=== PATIENT | male | born 1975 | race Caucasian/White ===

== ENCOUNTER 2016-11-13 21:23 | Inpatient (IN) ==
[2016-11-13] MEDS ORDERED: METOPROLOL TARTRATE 5 MG/5 ML VIAL IV ONE (21:35)
[2016-11-13] MEDS ORDERED: SODIUM CHLORIDE 0.9% 500 ML IV STA (21:52)
[2016-11-13] MEDS ORDERED: cefTRIAXone 1,000 MG in SODIUM CHLORIDE 0.9% 100 ML IV STA (21:52)
[2016-11-13] MEDS ORDERED: ACETAMINOPHEN 500 MG TABLET PO STA (21:54)
--- NOTE | 2016-11-13 21:55 | Emergency Department Note ---
Neil Montemayor Brittany, am scribing for, and in the presence of, Cheko Deal MD 21:50. Toyin Montemayor Charles R, MD, personally performed the services described in this documentation, ascribed by Rita Trejo in my presence, and it is both accurate and complete . Arrival - Arrival Chief Complaint: Weakness ED Nursing Triage Note: PT ARRIVES VIA EMS WITH COMPLAINTS OF FEELING WEAK. REPORT GIVEN THAT PT HAD SEIZURE LIKE ACTIVITY. NO HISTORY OF SEIZURES. PT RECENTLY HAD MORPHINE PAIN PUMP INCREASED TODAY. DENIES ANY PAIN AT TIME OF TRIAGE. PT IS NOTED TO BE DIAPHORETIC AT TIME OF TRIAGE. EMS REPORTS THAT PT HAD A INITIAL HEART RATE OF 175 ON SCENE AND WAS GIVEN ADENOSINE. Mode of Arrival: Stretcher Limitations: No Limitations Source: Patient, Family Time Seen by Provider: 11/13/16 21:33 - History of Present Illness HPI Narrative: This is a 41 y/o white male, who presents to the ED by EMS with c/o fever which started earlier today. His family states pt is confused. His family states pt has recently had a morphine pain pump increased. Pt denies any sore throat. Per EMS, pt was given adenosine secondary to heart rate being 175. Pt has no other complaints/pain in the ED at this time. Pt has a PMHx of HTN, depression, anxiety, back/neck problems, gout, and pain problems. Pt denies a surgical Hx. Pt denies a family medical Hx. Pt denies a social Hx. Onset (ago): hour(s) (Started earlier today) Consistency: constant Severity: moderate Allergies/Adverse Reactions: Allergies Allergy/AdvReac Type Severity Reaction Status Date / Time No Known Allergies Allergy Verified 10/12/15 09:15 Home Medications: Home Medications Medication Instructions Recorded Confirmed Type Colchicine [Colcrys] 0.6 mg PO BID 09/14/16 11/13/16 History Lisinopril 10 mg PO BID 09/14/16 11/13/16 History Methocarbamol Tab [Robaxin Tab] 750 mg PO TID 09/14/16 11/13/16 History Morphine ER Tab [Ms Contin] 100 mg PO TID 09/14/16 11/13/16 History Morphine ER Tab [Ms Contin] 100 mg PO TID 09/14/16 11/13/16 History Morphine Ir Tab [Morphine IR Tab] 30 mg PO Q12HR 09/14/16 11/13/16 History Venlafaxine HCl [Effexor XR] 150 mg PO DAILY 09/14/16 11/13/16 History traZODone [Desyrel] 150 mg PO BEDTIME 09/14/16 11/13/16 History Review of System - Review of System 12 point system: reviewed and no additional remarkable complaints except as stated - Review of System Constitutional: Present: fever Head/Ears/Nose/Throat: Absent: sore throat Musculoskeletal: Present: neck pain Neurological: Present: headache (On and off), confusion Medical,Surgical,& Family Hx - Medical History Cardio: History of: Hypertension Psychological: History of: Anxiety Disorders, Depression Rheumatology: History of;: Gout Musculoskeletal: History of: Back/Neck Problems (chronic back pain), Musculoskeletal Problems (s/p drug infusion system w/cath placement performed - 09/14/16) - Social History Smoking Status: Unknown if ever smoked Frequency of Alcohol Use: None Type of Drug Use: None Exam Vital Signs: Vital Signs Temperature 98.8 F 11/13/16 23:28 Pulse Rate 114 H 11/13/16 23:28 Respiratory Rate 15 11/13/16 23:28 Blood Pressure 158/119 11/13/16 23:28 O2 Sat by Pulse Oximetry 97 11/13/16 23:28 - General General appearance: alert, in no apparent distress - Head Head exam: Present: atraumatic, normocephalic, normal inspection - Eye Eye exam: Present: other (Pupils are pin point) - ENT ENT exam: Present: normal exam, normal oropharynx, mucous membranes moist - Neck Neck exam: Present: normal inspection, full ROM, trachea midline. Absent: tenderness, meningismus, lymphadenopathy, thyromegaly - Chest Chest inspection: Present: normal inspection, symmetric chest wall rise. Absent : tenderness, rash, abscess - Respiratory Respiratory exam: Present: rhonchi (Bilateral Rhonchi) - Cardiovascular Cardiovascular exam: Present: regular rate, irregular rhythm, normal heart sounds. Absent: murmur, rubs, gallop, clicks, JVD - Abdominal Exam Abdominal exam: Present: soft, hypoactive bowel sounds. Absent: distention, tenderness, guarding, rebound, rigidity - Back Exam Back exam: Present: other (Pain stimulator in the back, not infected). Absent: tenderness, muscle spasm, rashes - Neurological Exam Neurological exam: Present: alert, CN II-XII intact. Absent: motor sensory deficit - Psychiatric Psychiatric exam: Present: normal affect, normal mood. Absent: agitated, anxious - Skin Skin exam: Present: other (Flushed skin ). Absent: diaphoresis Course - Reevaluation(s) Reevaluation #1: Patient heart rate is down to 106 in stable Time: 23:47 - Consultations Consultation #1: Dr. Almonte will admit patient Time: 23:46 Results - Labs CBC & BMP: 11/13/16 21:45 11/13/16 21:45 Lab Results: I have reviewed the patients labs - Diagnostic Findings Procedure: Chest x-ray: report reviewed by me (No acute cardiopulmonary process. ), CT: report reviewed by me (Head CT: NO acute intracranial abnormality. ) Critical Care Time Critical Care Time: Yes Total Critical Care Time: 60 Disposition Clinical Impression: Chronic pain, Sepsis, Confusion, Delirium, chronic opiate dependency, Fever, SVT (supraventricular tachycardia) Case discussed with: patient, patient's family Disposition: Still a Patient Condition: Stable Time of Disposition: 23:47
[2016-11-13 22:06] LABS: Basophils % 0.2 % (0.0-0.8); Hematocrit 48.5 VOL% (42.0-52.0); Hemoglobin 16.2 GM/DL (14.0-18.0); Immature Granulocytes % 0.5 %; Immature Granulocytes Absolute 0.08 #; Lymphocytes # 0.5 10*3/uL (1.4-4.0); Lymphocytes % 3.3 % (21.2-54.2); Mean Corpuscular HGB Conc 33.4 GM/DL (32-36); Mean Corpuscular Hemoglobin 26 PG (27-34); Mean Corpuscular Volume 77.8 FL (87-102); Mean Platelet Volume 8.7 FL (9.6-12.0); Monocytes % 6.5 % (1.7-12.7); Neutrophils # 13.1 10*3/uL (1.4-7.4); Neutrophils % 89.5 % (38.7-73.9); Platelet Count 259 T/CUMM (130-400); Red Blood Count 6.23 MC/CUMM (3.8-5.5); Red Cell Distribution Width 13.3 % (9.3-17.3); White Blood Count 14.7 T/CUMM (4-12)
[2016-11-13 22:15] LABS: INR 1.7; PT Patient Result 18.4 SECS
[2016-11-13] MEDS ORDERED: SODIUM CHLORIDE 0.9% 100 ML IV ONE (22:15)
[2016-11-13] MEDS ORDERED: cefTRIAXone 1,000 MG VIAL ONE (22:15)
[2016-11-13] MEDS ORDERED: ACETAMINOPHEN 500 MG TABLET ONE (22:15)
[2016-11-13] MEDS ORDERED: METOPROLOL TARTRATE 5 MG/5 ML VIAL IV STA (22:25)
[2016-11-13 22:31] LABS: Albumin 3.3 G/DL (3.4-5.0); Bilirubin,Total 0.4 MG/DL (0.2-1.0); Calcium 9.5 MG/DL (8.5-10.1); Potassium 3.6 MMOL/L (3.5-5.1); Total Protein 7.4 G/DL (6.4-8.3)
--- NOTE | 2016-11-13 22:37 | CT Report ---
CT head/brain wo con INDICATION: Altered mental status/confusion The total DLP is 1053 mGy*cm. COMPARISON: None available Technique: Serial axial tomographic images of the brain were obtained without the use of intravenous contrast. Findings: The cortical sulcal pattern is generally symmetric and within normal limits in appearance bilaterally. There is no evidence of vascular territory infarct or acute intracranial hemorrhage. The albert-white matter differentiation is generally maintained. There is no hydrocephalus. The basilar cisterns are patent. Small mucous retention cysts noted within the right maxillary sinus and left sphenoid sinus. Otherwise, the visualized paranasal sinuses, mastoid air cells and middle ear cavities are predominantly clear. The included orbits and their contents appear within normal limits. The visualized osseous structures and overlying soft tissues of the skull and face demonstrate no acute abnormality. IMPRESSION: No acute intracranial abnormality. PROCEDURE INTERPRETED AT [facility] DEPARTMENT OF RADIOLOGY Final Report Signed by: Stew Gould
--- NOTE | 2016-11-13 22:38 | XRay Report ---
Exam: XR chest 1V portable Indication: Fever Shortness of breath Comparison study: None Findings: The heart, mediastinum, and bony structures are within normal limits. There is no focal consolidation, pneumothorax or pleural effusion identified. Impression: No acute cardiopulmonary process. PROCEDURE INTERPRETED AT [facility] DEPARTMENT OF RADIOLOGY Final Report Signed by: Stew Gould
[2016-11-13 23:38] LABS: Apearance,Urine Slightly Hazy (Clear); Bilirubin,Urine Negative (Negative); Blood, Urine Large mg/dL (Negative); Glucose,Urine (UA) Negative (Negative); Hyaline Casts,Urine 3 /LPF (0-3); Ketones,Urine 20 mg/dL (Negative); Mucus,Urine Occasional /LPF (Occasional); Nitrite,Urine Negative (Negative); Protein,Urine 100 MG/DL; RBC,Urine 66 /HPF (0-4); Urine Color Yellow (Yellow); Urine Specific Gravity 1.018 (1.001-1.035); Urine Urobilinogen < 2.0 EU/DL (0.2-1.0); WBC,Urine 2 /HPF (0-6)
[2016-11-13 23:42] LABS: Barbiturates Screen,Urine Negative (Negative); Benzodiazepines Screen,Urine Negative (Negative); Cannabinoid Screen,Urine Negative (Negative); Opiate Screen,Urine Positive (Negative); Phencyclidine Screen,Urine Negative (Negative)
--- NOTE | 2016-11-13 23:47 | Hospitalist History & Physical ---
Assessment and Plan (1) Seizure Status: Acute Current Visit: Yes (2) Acute encephalopathy Status: Acute Current Visit: Yes (3) Fever Status: Acute Current Visit: Yes (4) SVT (supraventricular tachycardia) Status: Acute Current Visit: Yes (5) Opioid dependence Status: Acute Assessment and plan: Plan: Patient went into SVT during evaluation in the ER which converted back to sinus rhythm after 3 doses of adenosine. He is currently sinus tachycardia, no chest pain no shortness of breath. We'll place him on heart monitor, schedule metoprolol 12.5 mg by mouth every 6.. We'll consult Dr. Cummings to evaluate the pain pump, as his family reports that he started having these symptoms on and off (headache, confusion, subjective fever and) since being placed. Also have neurology evaluate new-onset seizure. Infectious workup thus far is negative. He's been given a dose of empiric antibiotics in the ER. Current Visit: Yes History of Present Illness Chief complaint: headache, fever, confusion, SVT, seizure History of present illness: Mr. Staley is a 41 year old male with hypertension, chronic pain, followed by Dr. Osiel Cummings, who had a pain pump placed Suleman is here with a new onset seizure, confusion, and headache over the last 2 days or so. His reports about a week ago he was driving his kids to his mother's house and does not remember much of what happened and was "not acting like himself." Patient denies fever at that time or headache. This evening around 830 his witnessed seizure-like activity, which she describes as tonic-clonic like movements, no bowel or bladder incontinence. No tongue biting. He has never had a seizure before, not even as a child. He's also describes subjective fever and sweats over the last 2 days along with headache. He denies cough, chest pain, nausea vomiting diarrhea or dysuria. Infectious workup in the ER has been negative. He does have a markedly elevated CRP. Home Medications Medication Instructions Recorded Confirmed Type Colchicine [Colcrys] 0.6 mg PO BID 09/14/16 11/13/16 History Lisinopril 10 mg PO BID 09/14/16 11/13/16 History Methocarbamol Tab [Robaxin Tab] 750 mg PO TID 09/14/16 11/13/16 History Morphine ER Tab [Ms Contin] 100 mg PO TID 09/14/16 11/13/16 History Morphine ER Tab [Ms Contin] 100 mg PO TID 09/14/16 11/13/16 History Morphine Ir Tab [Morphine IR Tab] 30 mg PO Q12HR 09/14/16 11/13/16 History Venlafaxine HCl [Effexor XR] 150 mg PO DAILY 09/14/16 11/13/16 History traZODone [Desyrel] 150 mg PO BEDTIME 09/14/16 11/13/16 History Allergies Allergy/AdvReac Type Severity Reaction Status Date / Time No Known Allergies Allergy Verified 10/12/15 09:15 Medical,Surgical,& Family Hx - Medical History Cardio: History of: Hypertension Psychological: History of: Anxiety Disorders, Depression Rheumatology: History of;: Gout Musculoskeletal: History of: Back/Neck Problems (chronic back pain), Musculoskeletal Problems (s/p drug infusion system w/cath placement performed - 09/14/16) - Surgical History Additional Surgical History: Morphine pump implant August 2016 - Family History Family History: noncontributory - Social History Smoking Status: Unknown if ever smoked Frequency of Alcohol Use: None Type of Drug Use: None Marital Status: Lives With:: Spouse Functional capacity: independent ambulation Review of systems: A 12 point review of systems is negative except as specified in the HPI Exam - Constitutional Vitals: Period Temp Pulse Resp BP Sys/Hahn Pulse Ox Last 24 Hr 98.8 F-99.0 F 110-149 15-20 139-158/96-119 97-98 Exam: EXAM: CONSTITUTIONAL: Obese, diaphoretic, non toxic, NAD HEENT: NC, AT, OP benign, LILY, EOMI, no nuchal rigidity CV: Tachycardic, regular, no m/g/r RESP: clear B/L, no w/r/r GI: abd soft, NT, ND, +bowel sounds INTEGUMENTARY: no lesions or rash EXTREMITIES: no c/c/e NEURO: no focal deficits PSYCH: Awake and alert, oriented 3 Results - Labs CBC & BMP: 11/13/16 21:45 11/13/16 21:45 Lab Results: I have reviewed the past 24 hour labs - EKG EKG shows: tachycardia, sinus rhythm - Diagnostic Findings Procedure: Chest x-ray: image reviewed by me, report reviewed by me, CT: image reviewed by me, report reviewed by me
[2016-11-14 00:59] LABS: Lymphocytes 1 % (20-55); Myelocytes 1 %; Segmented Neutrophils 95 % (50-85)
[2016-11-14 01:00] LABS: Platelet Estimate Normal; Total Cells Counted 100
[2016-11-14] MEDS ORDERED: ONDANSETRON 4 MG/2 ML VIAL IV PRN (01:07)
[2016-11-14] MEDS ORDERED: BISACODYL 5 MG TABLET PO PRN (01:07)
[2016-11-14] MEDS ORDERED: ACETAMINOPHEN 325 MG TABLET PO PRN (01:07)
[2016-11-14] MEDS ORDERED: SODIUM CHLORIDE 0.9% 1,000 ML IV SCH (01:30)
[2016-11-14] MEDS: METOPROLOL TARTRATE 25 MG TABLET PO SCH ×2 (01:52→18:52)
[2016-11-14 06:21] LABS: Basophils % 0.3 % (0.0-0.8); Eosinophils % 0.2 % (0.00-10.9); Hematocrit 46.3 VOL% (42.0-52.0); Hemoglobin 15.6 GM/DL (14.0-18.0); Immature Granulocytes % 0.4 %; Immature Granulocytes Absolute 0.04 #; Lymphocytes # 1.3 10*3/uL (1.4-4.0); Lymphocytes % 11.5 % (21.2-54.2); Mean Corpuscular HGB Conc 33.7 GM/DL (32-36); Mean Corpuscular Hemoglobin 26 PG (27-34); Mean Corpuscular Volume 77.3 FL (87-102); Mean Platelet Volume 8.6 FL (9.6-12.0); Monocytes # 0.9 10*3/uL (0.11-0.8); Monocytes % 8.6 % (1.7-12.7); Neutrophils # 8.6 10*3/uL (1.4-7.4); Platelet Count 255 T/CUMM (130-400); Red Blood Count 5.99 MC/CUMM (3.8-5.5); Red Cell Distribution Width 13.4 % (9.3-17.3); White Blood Count 10.9 T/CUMM (4-12)
[2016-11-14 07:05] LABS: Bilirubin,Total 0.7 MG/DL (0.2-1.0); Calcium 9.1 MG/DL (8.5-10.1); Osmolality,Calculated 273.7 MOS/KG (273-304); Potassium 3.6 MMOL/L (3.5-5.1); Thyroid Stimulating Hormone 0.066 uIU/ml (0.358-3.74); Total Protein 7.1 G/DL (6.4-8.3)
--- NOTE | 2016-11-14 07:06 | Pain Management Consult Note ---
Assessment and Plan (1) Chronic pain Status: Acute Assessment and plan: will reduce pain medications a little , not related to seizures though Current Visit: Yes (2) Seizure Status: Acute Assessment and plan: consult neurology Current Visit: Yes (3) SVT (supraventricular tachycardia) Status: Acute Assessment and plan: consult cardiology Current Visit: Yes History of Present Illness Chief complaint: seizure History of present illness: Mr. Staley is a 41 year old male new onset of seizures last night. no definite evidence of infection is noted. he hadd episode of SVT. i would like to consult neurology and infectious disese and get full work up done. please note that in order to get mri scan, pain pump will need to be emptied before procedure. Home Medications Medication Instructions Recorded Confirmed Type Colchicine [Colcrys] 0.6 mg PO BID 09/14/16 11/13/16 History Lisinopril 10 mg PO DAILY 09/14/16 11/14/16 History Methocarbamol Tab [Robaxin Tab] 750 mg PO TID 09/14/16 11/13/16 History Morphine ER Tab [Ms Contin] 100 mg PO BID 09/14/16 11/14/16 History Morphine Ir Tab [Morphine IR Tab] 30 mg PO BID 09/14/16 11/14/16 History Venlafaxine HCl [Effexor XR] 150 mg PO DAILY 09/14/16 11/13/16 History traZODone [Desyrel] 150 mg PO BEDTIME 09/14/16 11/14/16 History Carisoprodol 350 mg PO BEDTIME 11/14/16 11/14/16 History fentaNYL [Fentanyl 100 mcg/hr 1 patch TRANSDERM Q3DAY 11/14/16 11/14/16 History Patch] Allergies Allergy/AdvReac Type Severity Reaction Status Date / Time No Known Allergies Allergy Verified 10/12/15 09:15 Medical,Surgical,& Family Hx - Medical History Cardio: History of: Hypertension Psychological: History of: Anxiety Disorders, Depression Rheumatology: History of;: Gout Musculoskeletal: History of: Back/Neck Problems (chronic back pain), Musculoskeletal Problems (s/p drug infusion system w/cath placement performed - 09/14/16) - Social History Smoking Status: Unknown if ever smoked Frequency of Alcohol Use: None Type of Drug Use: None 12 point system: reviewed and no additional remarkable complaints except as stated Exam - Constitutional Vitals: Period Temp Pulse Resp BP Sys/Hahn Pulse Ox Last 24 Hr 98.5 F-98.6 F 98-112 16-16 122-149/85-100 97-98 General appearance: no acute distress - Head Head exam: Present: normal inspection - Eye Pupils: Present: LILY - ENT ENT exam: Present: normal exam, normal external ear exam Ear exam: Present: intact Mouth exam: Present: normal external inspection - Neck Neck exam: Present: normal inspection - Respiratory Respiratory exam: Present: clear to auscultation bilaterally - Cardiovascular Cardiovascular exam: Present: RRR - GI/Abdominal GI/Abdominal exam: Present: normal bowel sounds, other (incision is intact , no redness or discharge) - Extremities Exam Extremities exam: Present: normal inspection - Back Exam Back exam: Present: vertebral tenderness - Neurological Exam Neurological exam: Present: alert, oriented X3 - Skin Skin exam: Present: normal color Results - Labs CBC & BMP: 11/14/16 06:02 11/13/16 21:45 Lab Results: I have reviewed the past 24 hour labs
[2016-11-14] MEDS: MORPHINE IR 15 MG TABLET PO SCH ×2 (08:11→21:14)
[2016-11-14] MEDS ORDERED: LORazepam 2 MG/1 ML VIAL IV ONE ×3 (08:36→19:58)
--- NOTE | 2016-11-14 08:53 | Hospitalist Progress Note ---
Assessment and Plan - Time spent with patient Time spent with patient: Less than 30 minutes (due to assessment, plan and documentation) (1) Seizure Status: Acute Assessment and plan: actively seizing upon arrival- ativan 2 mg IV was given and seizure stopped he will be moved to [address] CCU for close observation Dr. Chavez has been consulted for new onset seizure Current Visit: Yes (2) Acute encephalopathy Status: Acute Current Visit: Yes (3) Chronic pain Status: Acute Current Visit: Yes (4) SVT (supraventricular tachycardia) Status: Resolved Assessment and plan: received adenosine en route via EMS yesterday prior to admission. His HR has been 115 and around that juan since admit Current Visit: Yes Hospitalist: Subjective Interval history: Mr. Staley was seen this morning after a rapid response was called. He was admitted yesterday with SVT that required adenosine. He also had a seizure as well. Today, he is seizing again, and has vomited. Ativan 2 mg IV was given. His seizure did stop, but we was very agitated, confused. Lungs are course and it is felt that he has aspirated. Dr. Abad Tsai has been consulted for pulmonary. He was given Rocephin in the ED for a possible infectious cause, but none had been identified. He will be moved to the ICU for close observation. Dr. Chavez for Neurology was consulted on admit, but I do not see a note from him at this time. We will continue to monitor and Dr. Shah has seen on the floor and will follow him to the ICU. Further plan and addendum to follow by Dr. Yoly Shah. Exam - Constitutional Vitals: Period Temp Pulse Resp BP Sys/Hahn Pulse Ox Last 24 Hr 98.5 F-98.6 F 98-112 16-16 122-149/85-100 97-98 General appearance: severe distress, over weight - Head Head exam: Present: normal inspection, normocephalic - Eye Eye exam: Present: EOMI. Absent: scleral icterus Pupils: Present: LILY, normal accommodation - ENT ENT exam: Present: normal exam, normal oropharynx - Neck Neck exam: Present: normal inspection. Absent: lymphadenopathy - Respiratory Respiratory exam: Present: accessory muscle use, other (course likely aspiration ) - Cardiovascular Cardiovascular exam: Present: tachycardia - Back Exam Back exam: Present: normal inspection. Absent: muscle spasm - Neurological Exam Neurological exam: Present: alert, altered (is not not oriented to his surroundings at this time.). Absent: oriented X3 - Psychiatric Psychiatric exam: Present: agitated, anxious - Skin Skin exam: Present: normal color, warm, dry, intact Results - Labs CBC & BMP: 11/14/16 06:02 11/14/16 06:02 Lab Results: I have reviewed the past 24 hour labs
[2016-11-14] MEDS ORDERED: COLCHICINE 0.6 MG TABLET PO SCH (09:00)
[2016-11-14] MEDS ORDERED: METHOCARBAMOL 750 MG TABLET PO SCH (09:00)
[2016-11-14] MEDS ORDERED: MORPHINE ER 100 MG TABLET PO SCH (09:00)
[2016-11-14] MEDS ORDERED: VENLAFAXINE XR 75 MG CAPSULE PO SCH (09:00)
[2016-11-14] MEDS ORDERED: METOPROLOL TARTRATE 5 MG/5 ML VIAL IV ONE (09:06)
--- NOTE | 2016-11-14 09:17 | EKG Report ---
Stationary ECG Study [facility] Test Date: 11/14/2016 9:16:44 AM Pat Name: XAVIER MORALES Department: Room: 127 Gender: M Nutritional Assistant: CAREN : 1975 Requested by: Yoly Shah Order Number: [id number] Reading MD: KRYSTAL WATSON Intervals [place] Rate: 148 P: 59 MO: 117 QRS: 94 QRSD: 105 T: -6 QT: 310 QTc: 395 Interpretive Statements SINUS TACHYCARDIA WITH SHORT MO INTERVAL WITH OCCASIONAL VENTRICULAR PREMATURE COMPLEX BORDERLINE RIGHT AXIS DEVIATION MODERATE ST DEPRESSION IVCD Electronically Signed On 11-16-16 19:45:29 ESTIMATOR PROJECT MANAGER by KRYSTAL WATSON [email or web address]
--- NOTE | 2016-11-14 09:41 | Pulmonology Consult Note ---
Assessment and Plan (1) SVT (supraventricular tachycardia) Status: Resolved Assessment and plan: The patient has been having a regular tachycardia with high blood pressure now. We'll start a Cardizem infusion. Current Visit: Yes (2) Seizure Status: Acute Assessment and plan: He has continued to have seizures and is being loaded with seizure medications. Current Visit: Yes (3) Fever Status: Acute Assessment and plan: He will likely need an LP and further workup. Current Visit: Yes (4) Opioid dependence Status: Acute Assessment and plan: He has a pain pump in his back and takes morphine regularly. Current Visit: Yes (5) Aspiration into airway Status: Acute Assessment and plan: He may have had some mild aspiration but at this point his breathing is relatively stable. His seizures will need to be controlled first. He eventually may need to be intubated if his neurological status doesn't improve. Current Visit: Yes History of Present Illness Chief complaint: possible aspiration History of present illness: Mr. Staley is a 41 year old white male that has a history of having hypertension and chronic back pain. He has had a pain pump placed in his back last August. Last night he apparently had a witnessed seizure and had a tachycardia after the seizure. He came to the emergency room and was admitted. He apparently has been having a little bit of fever and sweats for the last couple days with a headache. He has never had seizures before. This morning he had another seizure and likely aspirated some chewing tobacco. He was moved to the CCU and he has had another seizure while I was talking to him. He will need to be evaluated further. He is getting seizure medicines now. He has not had any definite breathing problems before his seizure he was not coughing or short of breath. Home Medications Medication Instructions Recorded Confirmed Type Colchicine [Colcrys] 0.6 mg PO BID 09/14/16 11/13/16 History Lisinopril 10 mg PO DAILY 09/14/16 11/14/16 History Methocarbamol Tab [Robaxin Tab] 750 mg PO TID 09/14/16 11/13/16 History Morphine ER Tab [Ms Contin] 100 mg PO BID 09/14/16 11/14/16 History Morphine Ir Tab [Morphine IR Tab] 30 mg PO BID 09/14/16 11/14/16 History Venlafaxine HCl [Effexor XR] 150 mg PO DAILY 09/14/16 11/13/16 History traZODone [Desyrel] 150 mg PO BEDTIME 09/14/16 11/14/16 History Carisoprodol 350 mg PO BEDTIME 11/14/16 11/14/16 History fentaNYL [Fentanyl 100 mcg/hr 1 patch TRANSDERM Q3DAY 11/14/16 11/14/16 History Patch] Allergies Allergy/AdvReac Type Severity Reaction Status Date / Time No Known Allergies Allergy Verified 10/12/15 09:15 ROS unobtainable: due to mental status (he was talking appropriately and then suddenly had a seizure. He was not having any shortness of breath or definite pain at this time.) Exam (Pulmon) H&P - Constitutional Vitals: Period Temp Pulse Resp BP Sys/Hahn Pulse Ox Last 24 Hr 98.5 F-99.1 F 98-112 16-16 122-170/85-100 93-100 General appearance: over weight, other (the patient had a seizure while I was evaluating him.) - Head Head exam: Present: normal inspection - Eye Eye exam: Absent: scleral icterus - ENT ENT exam: Present: normal exam - Neck Neck exam: Present: normal inspection. Absent: lymphadenopathy, meningismus, thyromegaly - Respiratory Respiratory exam: Present: clear to auscultation bilaterally. Absent: wheezes - Cardiovascular Cardiovascular exam: Present: regular rate and rhythm. Absent: gallop, systolic murmur - GI/Abdominal GI/Abdominal exam: Present: normal bowel sounds, soft. Absent: organomegaly, tenderness - Extremities Exam Extremities exam: Absent: calf tenderness, edema - Neurological Exam Neurological exam: Present: other (he was alert and talking appropriately before the seizure.) - Skin Skin exam: Present: warm, dry Medical,Surgical,& Family Hx - Medical History Cardio: History of: Hypertension Psychological: History of: Anxiety Disorders, Depression Rheumatology: History of;: Gout Musculoskeletal: History of: Back/Neck Problems (chronic back pain), Musculoskeletal Problems (s/p drug infusion system w/cath placement performed - 09/14/16) - Social History Smoking Status: Unknown if ever smoked Frequency of Alcohol Use: None Type of Drug Use: None Results - Labs CBC & BMP: 11/14/16 06:02 11/14/16 06:02 - Diagnostic Findings Procedure: Chest x-ray: image reviewed by me, report reviewed by me (asked x- ray is clear)
--- NOTE | 2016-11-14 09:44 | XRay Report ---
XR chest 1V portable Indication: Seizure, aspiration Comparison: 13 November 2016 Findings: The heart and mediastinum are normal in size and configuration. The pulmonary vascularity is normal in caliber. No lung infiltrates, effusions, pneumothorax or other abnormality is demonstrated. Impression: Normal chest x-ray PROCEDURE INTERPRETED AT [facility] DEPARTMENT OF RADIOLOGY Final Report Signed by: Dr. Patrick Marin
[2016-11-14] MEDS ORDERED: DILTIAZEM INJ 100 MG in SODIUM CHLORIDE 0.9% 100 ML IV SCH (10:00)
[2016-11-14] MEDS: LORazepam 2 MG/1 ML VIAL IV PRN ×4 (10:01→23:23)
[2016-11-14] MEDS ORDERED: MORPHINE 2 MG/1 ML SYRINGE IV ONE (10:55)
[2016-11-14] MEDS: PANTOPRAZOLE 40 MG TABLET PO SCH (11:11)
[2016-11-14] MEDS: LISINOPRIL 10 MG TABLET PO SCH ×2 (11:11→21:14)
[2016-11-14] MEDS: METOPROLOL TARTRATE 50 MG TABLET PO SCH ×2 (11:13→21:14)
--- NOTE | 2016-11-14 11:45 | EKG Report ---
Stationary ECG Study [facility] ER Test Date: 11/13/2016 9:31:42 PM Pat Name: XAVIER MORALES Department: Room: 127 Gender: M Remelt Furnace Expediter: : 1975 Requested by: Cheko Cardoso Order Number: [id number] Reading MD: KRYSTAL WATSON Intervals [place] Rate: 149 P: 115 ID: 93 QRS: 126 QRSD: 107 T: 1 QT: 296 QTc: 381 Interpretive Statements SINUS or atrial TACHYCARDIA WITH SHORT ID INTERVAL WITH OCCASIONAL VENTRICULAR PREMATURE COMPLEXES INDETERMINATE AXIS Electronically Signed On 11-15-16 22:35:01 SPECIAL FORCES WEAPONS SERGEANT by KRYSTAL WATSON [email or web address]
--- NOTE | 2016-11-14 11:45 | EKG Report ---
Stationary ECG Study [facility] ER Test Date: 11/13/2016 9:46:45 PM Pat Name: XAVIER MORALES Department: Room: 127 Gender: M Nature Photographer: JOSE M : 1975 Requested by: Cheko Cardoso Order Number: [id number] Reading MD: KRYSTAL AWTSON Intervals [place] Rate: 116 P: 55 [place]: 144 QRS: 39 QRSD: 109 T: 7 QT: 337 QTc: 406 Interpretive Statements SINUS TACHYCARDIA Intraventricular conduction delay Electronically Signed On 11-15-16 22:35:36 ENAMEL SPRAYER by KRYSTAL WATSON [id number]
--- NOTE | 2016-11-14 14:48 | Neurology Consult Note ---
History of Present Illness History of present illness: Mr. Staley is a 41 year old male with hypertension, chronic pain, followed by Dr. Osiel Cummings, who had a pain pump placed in August 2016 is here with a new onset seizure, confusion, and headache over the last 2 days or so. His reports about a week ago he was driving his kids to his mother's house and does not remember much of what happened and was "not acting like himself." Patient denies fever at that time or headache. Yesterday evening around 830 his witnessed seizure-like activity, which she describes as tonic-clonic like movements, no bowel or bladder incontinence. No tongue biting. He has never had a seizure before, not even as a child. He's also describes subjective fever and sweats over the last 2 days along with headache. He denies cough, chest pain, nausea vomiting diarrhea or dysuria. He does have a markedly elevated CRP. He had another seizure this morning. Again CT head has been negative. Home Medications Medication Instructions Recorded Confirmed Type Colchicine [Colcrys] 0.6 mg PO BID 09/14/16 11/13/16 History Lisinopril 10 mg PO DAILY 09/14/16 11/14/16 History Methocarbamol Tab [Robaxin Tab] 750 mg PO TID 09/14/16 11/13/16 History Morphine ER Tab [Ms Contin] 100 mg PO BID 09/14/16 11/14/16 History Morphine Ir Tab [Morphine IR Tab] 30 mg PO BID 09/14/16 11/14/16 History Venlafaxine HCl [Effexor XR] 150 mg PO DAILY 09/14/16 11/13/16 History traZODone [Desyrel] 150 mg PO BEDTIME 09/14/16 11/14/16 History Carisoprodol 350 mg PO BEDTIME 11/14/16 11/14/16 History fentaNYL [Fentanyl 100 mcg/hr 1 patch TRANSDERM Q3DAY 11/14/16 11/14/16 History Patch] Allergies Allergy/AdvReac Type Severity Reaction Status Date / Time No Known Allergies Allergy Verified 10/12/15 09:15 ROS unobtainable: due to delirium Medical,Surgical,& Family Hx - Medical History Cardio: History of: Hypertension Psychological: History of: Anxiety Disorders, Depression Rheumatology: History of;: Gout Musculoskeletal: History of: Back/Neck Problems (chronic back pain), Musculoskeletal Problems (s/p drug infusion system w/cath placement performed - 09/14/16) - Social History Smoking Status: Unknown if ever smoked Frequency of Alcohol Use: None Type of Drug Use: None Exam - Constitutional Vitals: Period Temp Pulse Resp BP Sys/Hahn Pulse Ox Last 24 Hr 98.5 F-101.1 F 98-138 16-16 122-170/85-100 93-100 Exam: GENERAL: Patient is in no acute distress. NECK: Neck is supple. There is no JVD. No carotid bruits present. No thyroid masses. CVS: First and second heart sounds are normal. There is no S3 present. Regular rate and rhythm. RESPIRATORY: Lungs are clear to auscultation without any rales or rhonchi. ABDOMEN: Soft and non-tender. Bowel sounds are present. There is no hepatosplenomegaly. EXT: There is no palpable edema. Peripheral pulses are present. Skin: No rashes Central Nervous system: General: awake and disoriented Speech: Fluent Comprehension: Impaired Facial expressions: Normal Cranial Nerves: Pupils are equally reactive to light. Extraocular movements are intact. No facial asymmetry seen. Motor: Bulk and Tone is normal. Strength to medical Sensory: Unreliable Reflexes: 1+ and symmetrical Cerebellar function: Not tested Gait: Not tested Results - Labs CBC & BMP: 11/14/16 06:02 11/14/16 06:02 Assessment and Plan (1) Delirium Status: Acute Assessment and plan: Change trazodone to 75 mg twice a day Change MS Contin to 100 mg daily DC Robaxin Current Visit: Yes (2) Seizure Status: Acute Assessment and plan: Continue Keppra for now Current Visit: Yes (3) Acute encephalopathy Status: Acute Assessment and plan: Etiology is not clear however meningitis needs to be ruled out, We will go ahead and order LP under fluoroscopy We'll follow up on that. Current Visit: Yes
[2016-11-14] MEDS ORDERED: PROPOFOL 200 MG/20 ML VIAL IV ONE ×3 (16:06→20:10)
--- NOTE | 2016-11-14 16:11 | Event Note ---
1)he may have aspirated tobacco when he siezed this morning. He had rhonchi. Dr Tsai has seen him. sats good on 2L nC 2)has a fever and has remained restless after today's second seizure despite ativan and keppra. He needs the LP- anesthesia called and IR is collaborating with them for LP. Dr Chavez ordered the tests he wants.
--- NOTE | 2016-11-14 16:36 | Post Interventional Procedure ---
Pre-op diagnosis: AMS Post-op diagnosis: same Procedure: LP w/ fluoro and MAC Flouroscopy: 0.7 min Radiologist: Dane Chandler Anesthesia: MAC Specimens: other (12 cc xanthochromic, slightly cloudy CSF) Estimated blood loss: none Complications: none Condition: stable Description/Findings: Elevated OP 45 cm-water. Tx to recovery.
--- NOTE | 2016-11-14 16:55 | Event Note ---
patient has developed a fever and confusion, it is highly suspicious for meningitis and i think we need to proceed with pump removal
[2016-11-14 16:56] LABS: Glucose,CSF 16 MG/DL (40-70)
[2016-11-14] MEDS ORDERED: ceFAZolin 1,000 MG VIAL ONE (17:28)
[2016-11-14] MEDS: cefTRIAXone 2,000 MG in SODIUM CHLORIDE 0.9% 100 ML IV SCH (17:28)
[2016-11-14 17:50] LABS: Appearance,CSF Hazy; Lymphocytes,CSF 13 %; Monocytes,CSF 8 %; Neutrophils,CSF 79 %; Red Blood Cell,CSF 210 C/CUMM; White Blood Cell,CSF 987 C/CUMM
[2016-11-14] MEDS ORDERED: KETAMINE 500 MG/10 ML VIAL ONE (17:56)
[2016-11-14] MEDS ORDERED: MIDAZOLAM 2 MG/2 ML VIAL ONE ×2 (17:56→19:49)
[2016-11-14] MEDS ORDERED: SODIUM CHLORIDE 0.9% 250 ML IV ONE (17:56)
[2016-11-14] MEDS: ACYCLOVIR INJ 1,000 MG in SODIUM CHLORIDE 0.9% 250 ML IV SCH (18:10)
[2016-11-14] MEDS: SODIUM CHLORIDE 0.45% 1,000 ML IV SCH ×4 (18:20→22:10)
--- NOTE | 2016-11-14 19:01 | Operative Note ---
Date of procedure: 11/14/16 Pre-op diagnosis: meningitis, suspected infected drug infusion system pump and catheter Post-op diagnosis: same Procedure: Procedure was removal of drug infusion system pump and drug infusion system pump catheter. Complicated closure of the abdominal wound with placement of size 10 RIVERA drain through a separate incision Patient was taken to the operating room placed under general anesthesia and placed in the right lateral decubitus position with a beanbag under him and a axillary roll with good padding. Sterile prep and drape was done and the procedure was started. We'll time out was called and local infiltration was 1% lidocaine 10 mL. Skin incisions were made at the lumbar and the abdominal sites. The pump and the catheters were removed intact. Aerobic and anaerobic cultures of both sides and of the catheter tip were obtained. Routine antibiotics were continued. Note that there was no CSF leak and there was no signs of infection at both the sites of the wounds. For Mrs.'s was obtained the skin incision were closed after irrigation with saline. 2 layer closure was done at both sides with 3-0 Monocryl. And skin closure was done with katelin. A separate incision was made at the abdominal site and a size 10 RIVERA drain was placed and secured with the 3-0 silk Pursestring suture. Sterile dressings were applied patient was awakened from anesthesia and taken to the recovery room in a stable fashion. Patient have a stable throughout the procedure no known complications were noted Anesthesia: RUSTAM Surgeon / Physician: Herminio Cummings Estimated blood loss: minimal Specimens: other (pain pump and catheter) Condition: stable Disposition: ICU Results - Labs CBC & BMP: 11/14/16 06:02 11/14/16 06:02 Discharge Plan - Discharge Medications No Action fentaNYL [Fentanyl 100 mcg/hr Patch] 1 patch TRANSDERM Q3DAY Carisoprodol 350 mg PO BEDTIME Lisinopril 10 mg PO DAILY Colchicine [Colcrys] 0.6 mg PO BID Morphine Ir Tab [Morphine IR Tab] 30 mg PO BID Methocarbamol Tab [Robaxin Tab] 750 mg PO TID traZODone [Desyrel] 150 mg PO BEDTIME Venlafaxine HCl [Effexor XR] 150 mg PO DAILY Morphine ER Tab [Ms Contin] 100 mg PO BID - Follow Up or Referral - Forms/Instructions
[2016-11-14] MEDS ORDERED: SODIUM CHLORIDE 0.9% 2,000 ML IV ONE (19:42)
--- NOTE | 2016-11-14 19:44 | Anesthesia ---
Anesthesia Post OP - Post Ansesthetic Evaluation Patient seen in post op: Yes Resp: within normal limits CV: within normal limits Mental: other (continued impaired mental function as pre op) Temp: within normal limits Kvsa-Of-Gkmikhsso: within normal limits Nausea and Vomiting: within normal limits Pain: within normal limits
[2016-11-14] MEDS ORDERED: SODIUM CHLORIDE 0.9% 1,000 ML IV ONE (19:47)
[2016-11-14] MEDS ORDERED: ONDANSETRON 4 MG/2 ML VIAL ONE (19:49)
[2016-11-14] MEDS ORDERED: fentaNYL 100 MCG/2 ML VIAL ONE (19:49)
[2016-11-14] MEDS ORDERED: SEVOFLURANE 1 UNIT/15 MINUTE INH ONE (19:54)
[2016-11-14] MEDS: PROPOFOL 1,000 MG/100 ML BOTTLE IV SCH ×2 (20:00→23:26)
[2016-11-14] MEDS ORDERED: PROPOFOL 1,000 MG/100 ML BOTTLE IV ONE (20:00)
--- NOTE | 2016-11-14 20:27 | Event Note ---
Intubation note: Indication: Altered mental status with meningitis. Patient became extremely combative and began to start pulling on lines and his drain, trying to climb out of, and almost fell out of bed. Sedation: Diprivan 150 mg IV, Ativan 6 mg IV Description: The video-laryngoscope was used to visualize the vocal cords. 7.5 cm endotracheal tube was placed without difficulty. Confirmation of placement by CO2 detector and auscultation. Chest x-ray pending. No complications. O2 sats 100%
[2016-11-14] MEDS: AMPICILLIN INJ 2,000 MG in SODIUM CHLORIDE 0.9% 100 ML IV SCH ×2 (20:56→21:12)
[2016-11-14] MEDS: VANCOMYCIN INJ 1,750 MG in SODIUM CHLORIDE 0.9% 500 ML IV SCH (20:57)
[2016-11-14] MEDS: NICOTINE 21 MG/24 HR PATCH TRANSDERM SCH (21:11)
[2016-11-14] MEDS: traZODone 50 MG TABLET PO SCH (21:12)
--- NOTE | 2016-11-14 21:14 | XRay Report ---
Exam: XR chest 1V portable Indication: intubated Comparison study: 11/14/2016 at 9:21 AM Findings: Endotracheal tube is now noted in place with the tip terminating 2 cm from the mekhi. Low lung volumes are noted with minimal perihilar and basilar atelectasis. Lungs are otherwise predominantly clear. There is no pneumothorax. Osseous structures appear stable. Impression: Low lung volumes with minimal perihilar atelectasis. Endotracheal tube tip terminates 2 cm from the mekhi. PROCEDURE INTERPRETED AT [facility] DEPARTMENT OF RADIOLOGY Final Report Signed by: Stew Gould
[2016-11-14 21:19] LABS: ABG Base Excess -0.6 MMOL/L (-2.5-2.5); ABG Oxygen Saturation 99.8 % (95-100); ABG PCO2 33.2 MM HG (35-48); ABG PH 7.443 (7.35-7.45); ABG TCO2 19.6 MMOL/L (23-27); Pt O2 Delivery Device Ventilator
[2016-11-14] MEDS: MORPHINE 2 MG/1 ML SYRINGE IV PRN (23:24)
[2016-11-15] MEDS: AMPICILLIN INJ 2,000 MG in SODIUM CHLORIDE 0.9% 100 ML IV SCH ×6 (00:19→21:31)
[2016-11-15] MEDS: ACYCLOVIR INJ 1,000 MG in SODIUM CHLORIDE 0.9% 250 ML IV SCH ×3 (02:19→19:23)
[2016-11-15] MEDS: PROPOFOL 1,000 MG/100 ML BOTTLE IV SCH ×6 (02:49→22:52)
[2016-11-15] MEDS: cefTRIAXone 2,000 MG in SODIUM CHLORIDE 0.9% 100 ML IV SCH ×2 (03:17→16:27)
[2016-11-15] MEDS: MORPHINE 2 MG/1 ML SYRINGE IV PRN ×3 (03:37→23:34)
[2016-11-15] MEDS: LORazepam 2 MG/1 ML VIAL IV PRN ×3 (03:38→21:32)
[2016-11-15 03:42] LABS: ABG Base Excess -1.7 MMOL/L (-2.5-2.5); ABG Oxygen Saturation 99.5 % (95-100); ABG PCO2 32.3 MM HG (35-48); ABG PH 7.435 (7.35-7.45); ABG TCO2 18.9 MMOL/L (23-27); Pt O2 Delivery Device Ventilator
[2016-11-15] MEDS: SODIUM CHLORIDE 0.45% 1,000 ML IV SCH ×2 (04:49→06:44)
[2016-11-15 04:56] LABS: Basophils % 0.3 % (0.0-0.8); Eosinophils % 0.2 % (0.00-10.9); Hematocrit 40.5 VOL% (42.0-52.0); Hemoglobin 13.3 GM/DL (14.0-18.0); Immature Granulocytes % 0.5 %; Immature Granulocytes Absolute 0.05 #; Lymphocytes % 18.2 % (21.2-54.2); Mean Corpuscular HGB Conc 32.8 GM/DL (32-36); Mean Corpuscular Hemoglobin 26 PG (27-34); Mean Corpuscular Volume 79.4 FL (87-102); Monocytes # 1.2 10*3/uL (0.11-0.8); Monocytes % 11.1 % (1.7-12.7); Neutrophils # 7.5 10*3/uL (1.4-7.4); Neutrophils % 69.7 % (38.7-73.9); Platelet Count 237 T/CUMM (130-400); Red Cell Distribution Width 13.7 % (9.3-17.3); White Blood Count 10.7 T/CUMM (4-12)
[2016-11-15] MEDS: VANCOMYCIN INJ 1,750 MG in SODIUM CHLORIDE 0.9% 500 ML IV SCH ×3 (05:11→20:37)
[2016-11-15 06:00] LABS: Calcium 7.9 MG/DL (8.5-10.1); Osmolality,Calculated 270.7 MOS/KG (273-304); Potassium 4.4 MMOL/L (3.5-5.1)
[2016-11-15 06:19] LABS: HIV Antigen/Antibody Result Nonreactive (Nonreactive)
--- NOTE | 2016-11-15 06:25 | Pain Management Progress Note ---
Assessment and Plan (1) Chronic pain Status: Acute Assessment and plan: will reduce pain medications a little , not related to seizures though Current Visit: Yes (2) Seizure Status: Acute Assessment and plan: consult neurology 11/15. we will consult Dr. pretty for wound care. try to wean off the ventilator. continue current medications. Current Visit: Yes (3) SVT (supraventricular tachycardia) Status: Resolved Assessment and plan: consult cardiology Current Visit: Yes Pain - Subjective Interval history: stable overnight. intubated for being combative. he is otherwise stable. i talked to the mother and informed her of his condition. Exam - Constitutional Vitals: Period Temp Pulse Resp BP Sys/Hahn Pulse Ox Last 24 Hr 10.1 F-101.1 F 92-166 2-30 82-196/35-146 93-100 General appearance: no acute distress - Head Head exam: Present: normal inspection - Eye Eye exam: Present: EOMI Pupils: Present: LILY - ENT ENT exam: Present: normal exam Ear exam: Present: intact Mouth exam: Present: normal external inspection - Neck Neck exam: Present: normal inspection - Respiratory Respiratory exam: Present: decreased breath sounds - Cardiovascular Cardiovascular exam: Present: RRR - GI/Abdominal GI/Abdominal exam: Present: other (incision intact) - Extremities Exam Extremities exam: Present: normal inspection - Back Exam Back exam: Present: other (incision intact) - Neurological Exam Speech: Present: abnormal - Skin Skin exam: Present: normal color Results - Labs CBC & BMP: 11/15/16 03:47 11/15/16 03:47 Lab Results: I have reviewed the past 24 hour labs
[2016-11-15] MEDS ORDERED: DEXTROSE 50% 25 GM/50 ML VIAL IV ONE (06:33)
[2016-11-15] MEDS: DEXTROSE 5% NACL 0.45% 1,000 ML IV SCH ×3 (06:45→22:51)
--- NOTE | 2016-11-15 07:24 | Physician Query Form ---
CLICK EDIT DOCUMENT TO SELECT QUERY ANSWER --> OK --> SIGN Elva Huang RN, CCDS Certified Clinical Automotive Worker W) [phone] (f) [phone] [email or web address]: Make your selection(s) from the choices in EACH section by typing an "x" and enter comments in the comment section. Please use your independent medical judgment in providing your response. This request does not imply that any particular answer is desired or expected. CLINICAL INDICATORS: (Providers should not edit this section) The medical record indicates that the patient was admitted with Seizures, WBC of 14.7, mainly tachycardia with some SVT, Acute encephalopathy, later had later surgery for a "suspected infected drug infusion pump and catheter". In the ER impression Sepsis is mentioned, In your clinical opinion can you please clarify if the patient was treated for ? Please clarify which, if any, of the following is the etiology of the above symptoms and treatment rendered: ( ) Septic Shock (severe sepsis with hypotension) ( ) Severe Sepsis (sepsis with acute organ failure) - Please specify type acute organ failure: ( x) Sepsis due to a localized infection, please specify site: _meningitis____ ( ) Sepsis due to a device, implant or graft, please specify: ( ) Localized infection only, without systemic illness, please specify site: ( ) Bacteremia (abnormal lab finding only, does not indicate systemic illness) ( ) Meningitis due to Infected drug infusion pump ( ) Other condition, please specify: ( ) Sepsis was ruled out ( ) Clinically unable to determine Criteria for Sepsis (SIRS due to an infection) should be based on 2 or more of the following being present: Temperature > 101F or < 96.8F WBC > 12,000 or < 4,000, or > 10% bands Tachycardia HR > 90 beats/minute Tachypnea RR > 20 breaths/minute or PaCO2 > 32mmHg Lactate level > 2.0 mmol/L (>4 is equivalent to severe sepsis) Altered Mental Status Mottling of skin or prolonged capillary refill Non-diabetic hyperglycemia (blood sugar >120 mg/dl) Other evidence of acute organ failure associated with sepsis ( severe sepsis) COMMENTS: Use of terms such as suspected, likely, or probable (associated with a specific diagnosis that is being evaluated, monitored, or treated as if it exists) are acceptable and can be restated in the discharge summary if not ruled out. MTDD
--- NOTE | 2016-11-15 07:25 | Pulmonology Progress Note ---
Pulmonary - PN: Subj Interval history: The patient is a 41-year-old white man came in with a low-grade fever and headaches and had seizures. The has a pain pump in his back and it looks like he probably has meningitis now. He was taken to surgery and had the pain pump removed. Postop he was extremely anxious and required sedation is now on the ventilator. He has excellent oxygenation on the ventilator. He is still requiring a lot of sedation at this point. His blood pressure is stable and he looks quite comfortable at present. Exam (Progress Note) - Constitutional Vitals: Period Temp Pulse Resp BP Sys/Hahn Pulse Ox Last 24 Hr 10.1 F-101.1 F 92-166 2-30 82-196/35-146 93-100 Exam: General appearance: over weight, other (the patient is sedated and comfortable on the ventilator at present.) - Head Head exam: Present: normal inspection - Eye Eye exam: Absent: scleral icterus - ENT ENT exam: Present: normal exam, ET tube is in good position - Neck Neck exam: Present: normal inspection. Absent: lymphadenopathy, meningismus, thyromegaly - Respiratory Respiratory exam: Present: clear to auscultation bilaterally. He does have good breath sounds bilaterally. Absent: wheezes - Cardiovascular Cardiovascular exam: Present: regular rate and rhythm. Absent: gallop, systolic murmur - GI/Abdominal GI/Abdominal exam: Present: normal bowel sounds, soft. His left flank is bandaged with drains present. Absent: organomegaly, tenderness - Extremities Exam Extremities exam: Absent: calf tenderness, edema - Neurological Exam Neurological exam: Present: other (he is now sedated on the ventilator. ) - Skin Skin exam: Present: warm, dry Results - Labs CBC & BMP: 11/15/16 03:47 11/15/16 03:47 Labs: His PO2 is 306 with a PCO2 of 32 and a pH of 7.43 - Diagnostic Findings Procedure: Chest x-ray: image reviewed by me, report reviewed by me (Chest x- ray shows no definite infiltrates.) Assessment and Plan (1) SVT (supraventricular tachycardia) Status: Resolved Assessment and plan: The patient had a better heart rate now that he is sedated on the ventilator. Current Visit: Yes (2) Seizure Status: Acute Assessment and plan: He has continued to have seizures and is being loaded with seizure medications. He has not had any further seizures. Current Visit: Yes (3) Fever Status: Acute Assessment and plan: He does look like he has meningitis on his lumbar puncture. Current Visit: Yes (4) Opioid dependence Status: Acute Assessment and plan: His pain pump was removed yesterday. Current Visit: Yes (5) Aspiration into airway Status: Acute Assessment and plan: He may have had some mild aspiration but at this point his breathing is relatively stable. His chest x-ray does not show any definite infiltrates. Current Visit: Yes (6) Meningitis Status: Acute Assessment and plan: The patient did have an abnormal LP and is being covered for meningitis. Current Visit: Yes (7) On mechanically assisted ventilation Status: Acute Assessment and plan: The patient looks quite comfortable on the ventilator and will adjust his ventilator. Current Visit: Yes
--- NOTE | 2016-11-15 08:15 | XRay Report ---
Single view of the chest. Indication: Aspiration. Seizure disorder. Comparison: November 14, 2016. The heart is enlarged with left ventricular hypertrophy. There is uncoiling of the thoracic aorta. The distal tip of the endotracheal tube projects at the T3 level. The pulmonary vasculature is normal. The lung volumes are small. No consolidation, pneumothorax, or pleural effusion. Impression: No interval change. PROCEDURE INTERPRETED AT [facility] DEPARTMENT OF RADIOLOGY Final Report Signed by: Dr. Gianna Diaz
--- NOTE | 2016-11-15 08:36 | Interventional Radiology Rpt ---
IR lumbar puncture diagnostic Indication: Altered mental status. Lumbar puncture with fluoroscopy Description: Formal timeout was performed. Patient was placed under Mac anesthesia. Maximum sterile barrier technique used. The patient was placed left lateral decubitus on the fluoroscopy table. The low back was prepped and draped in a sterile fashion. A midline lumbar puncture was then performed at the L3-4 interspace using a 22-gauge spinal needle. Fluoroscopic guidance was used and a captured image documents the needle position. An opening pressure of greater than 45 cm water was obtained. 12 cc slightly yellow, slightly cloudy CSF was withdrawn and sent to laboratory. Needle was removed and a bandage placed the puncture site. Fluoroscopy time: 0.7 minutes. Impression: Lumbar puncture as described. Elevated opening pressure. Grossly abnormal appearing CSF, xanthochromic and slightly cloudy. PROCEDURE INTERPRETED AT [facility] DEPARTMENT OF RADIOLOGY Final Report Signed by: Dane Chandler M.D.
[2016-11-15] MEDS ORDERED: MORPHINE ER 100 MG TABLET PO SCH (09:00)
[2016-11-15] MEDS: MORPHINE IR 15 MG TABLET NG SCH ×2 (09:22→18:00)
[2016-11-15] MEDS: METOPROLOL TARTRATE 50 MG TABLET PO SCH ×2 (09:23→20:37)
[2016-11-15] MEDS: PANTOPRAZOLE 40 MG TABLET PO SCH (09:23)
[2016-11-15] MEDS: LISINOPRIL 10 MG TABLET PO SCH ×2 (09:23→20:37)
[2016-11-15] MEDS: NICOTINE 21 MG/24 HR PATCH TRANSDERM SCH (09:23)
--- NOTE | 2016-11-15 09:23 | Hospitalist Progress Note ---
Assessment and Plan (1) Meningitis Status: Acute Assessment and plan: 1)meningitis- CSF had 917 WBC, over 200 RBC. gram stain negative, antigens neg, crypto and fungal neg, cultures pending. GNR on tip of pump culture. On ceftriaxone, vanc, ampicillin, and acyclovir for now. No more seizures since yesterday morning- on keppra. he was tachycardic but his BP was stable other than when it dropped briefly when sedated for LP. He has received NS bolus yesterday. 2)seizure 3)brisk UOP- nurses think he has kept I and O even but UOP has picked up this morning. Monitor for diabetes insipidus. 4)narcotic tolerance/dependence- change morphine to 30mg IR q8h- this is about half his usual dose- since we can't give ER form down NGT. fentanyl patch stopped yesterday. 5)nutrition- ask montessori toddler teacher for tube feed recs. Current Visit: Yes (2) Sepsis Status: Acute Current Visit: Yes (3) Seizure Status: Acute Current Visit: Yes (4) Opioid dependence Status: Acute Current Visit: Yes (5) Aspiration into airway Status: Acute Current Visit: Yes (6) On mechanically assisted ventilation Status: Acute Current Visit: Yes Hospitalist: Subjective Interval history: Yesterday he had LP, pain pump removed, intubation last night bc he was agitated and liable to hurt himself and pull out IVs etc. After intubation he was sedated and has remained comfortable on vent. His sinus tach also slowed once he was sedated. I have talked to his this morning to update her. Exam - Constitutional Vitals: Period Temp Pulse Resp BP Sys/Hahn Pulse Ox Last 24 Hr 10.1 F-101.1 F 92-152 2-30 82-196/35-146 94-100 General appearance: no acute distress (intubated, sedated), over weight - Head Head exam: Present: normocephalic, atraumatic - Eye Eye exam: Absent: scleral icterus Pupils: Present: LILY - Respiratory Respiratory exam: Present: clear to auscultation bilaterally - Cardiovascular Cardiovascular exam: Present: regular rate and rhythm - GI/Abdominal GI/Abdominal exam: Present: normal bowel sounds, soft. Absent: tenderness - Extremities Exam Extremities exam: Absent: edema - Neurological Exam Neurological exam: Present: other (when sedation decreased he is restless and purposeful with movements, reaching for ETT, IVs, restraints etc. Does not follow commands. moving all 4 extremities, very strong) - Skin Skin exam: Present: warm, dry. Absent: erythema, rash Results - Labs CBC & BMP: 11/15/16 03:47 11/15/16 03:47 Lab Results: I have reviewed the past 24 hour labs
[2016-11-15] MEDS ORDERED: GLUCAGON 1 MG VIAL IM PRN (14:08)
[2016-11-15] MEDS ORDERED: DEXTROSE 50% 25 GM/50 ML VIAL IV PRN (14:08)
--- NOTE | 2016-11-15 15:29 | General Surgery Consult Note ---
Assessment and Plan - Time spent with patient Time spent with patient: Less than 30 minutes (1) Abnormal surgical wound Status: Acute Assessment and plan: Impression: 1. Left flank surgical wound from removal of a pain pump 2. Back wound secondary to removal of pain pump and leads Plan: Wound care Current Visit: Yes History of Present Illness Chief complaint: Wound care management. History of present illness: Mr. Satley is a 41 year old male white who is in the unit at this time on the ventilator for a viral meningitis. He was having seizures and spinal tap suggested he had a viral meningitis because he had a pain pump. It was removed because of being of foreign material in the spinal column. We were asked to see the patient and monitor these wounds and see if there is something that we can do to keep them clean and dry at this time. Home Medications Medication Instructions Recorded Confirmed Type Colchicine [Colcrys] 0.6 mg PO BID 09/14/16 11/13/16 History Lisinopril 10 mg PO DAILY 09/14/16 11/14/16 History Methocarbamol Tab [Robaxin Tab] 750 mg PO TID 09/14/16 11/13/16 History Morphine ER Tab [Ms Contin] 100 mg PO BID 09/14/16 11/14/16 History Morphine Ir Tab [Morphine IR Tab] 30 mg PO BID 09/14/16 11/14/16 History Venlafaxine HCl [Effexor XR] 150 mg PO DAILY 09/14/16 11/13/16 History traZODone [Desyrel] 150 mg PO BEDTIME 09/14/16 11/14/16 History Carisoprodol 350 mg PO BEDTIME 11/14/16 11/14/16 History fentaNYL [Fentanyl 100 mcg/hr 1 patch TRANSDERM Q3DAY 11/14/16 11/14/16 History Patch] Allergies Allergy/AdvReac Type Severity Reaction Status Date / Time No Known Allergies Allergy Verified 10/12/15 09:15 Medical,Surgical,& Family Hx - Medical History Cardio: History of: Hypertension Psychological: History of: Anxiety Disorders, Depression Rheumatology: History of;: Gout Musculoskeletal: History of: Back/Neck Problems (chronic back pain), Musculoskeletal Problems (s/p drug infusion system w/cath placement performed - 09/14/16) - Social History Smoking Status: Unknown if ever smoked Frequency of Alcohol Use: None Type of Drug Use: None 12 point system: reviewed and no additional remarkable complaints except as stated Exam - Constitutional Vitals: Period Temp Pulse Resp BP Sys/Hanh Pulse Ox Last 24 Hr 10.1 F-100.3 F 85-152 2-30 82-141/35-106 94-100 General appearance: mild distress - Head Head exam: Present: normal inspection - ENT ENT exam: Present: normal exam - Neck Neck exam: Present: normal inspection - Respiratory Respiratory exam: Present: rales, rhonchi - Cardiovascular Cardiovascular exam: Present: RRR - GI/Abdominal GI/Abdominal exam: Present: hypoactive bowel sounds, soft, other (Wound on the left flank area that is closed with a drain in place with no swelling or erythematous changes.). Absent: guarding - Extremities Exam Extremities exam: Present: normal inspection. Absent: edema - Back Exam Back exam: Present: other (Wound in the mid back area that is closed with clips no sign of any swelling or erythematous changes.) - Neurological Exam Neurological exam: Present: altered - Skin Skin exam: Present: normal color, warm, dry Results - Labs CBC & BMP: 11/15/16 03:47 11/15/16 03:47 Lab Results: I have reviewed the past 24 hour labs
--- NOTE | 2016-11-15 16:05 | Neurology Progress Note ---
Neurology - PN : Subjective Interval history: Patient has been intubated for a total protection. Spinal tap results suggest infection. He is on Rocephin, ampicillin, vancomycin and acyclovir. Hemodynamically he is stable. All the cultures has been negative so far. Herpes PCR is still pending. Pain pump has been taken off. Exam (Progress Note) - Constitutional Vitals: Period Temp Pulse Resp BP Sys/Hahn Pulse Ox Last 24 Hr 97.3 F-100.3 F 85-152 2-30 82-141/35-106 94-100 Exam: GENERAL: Patient is in no acute distress. NECK: Neck is supple. There is no JVD. No carotid bruits present. No thyroid masses. CVS: First and second heart sounds are normal. There is no S3 present. Regular rate and rhythm. RESPIRATORY: Lungs are clear to auscultation without any rales or rhonchi. ABDOMEN: Soft and non-tender. Bowel sounds are present. There is no hepatosplenomegaly. EXT: There is no palpable edema. Peripheral pulses are present. Skin: No rashes Central Nervous system: General: Sedated on vent Speech: Sedated Comprehension: Impaired Facial expressions: Normal Cranial Nerves: Pupils are equally reactive to light. Extraocular movements are intact. No facial asymmetry seen. Motor: Bulk and Tone is normal. Strength to medical Sensory: Unreliable Reflexes: 1+ and symmetrical Cerebellar function: Not tested Gait: Not tested Results - Labs CBC & BMP: 11/15/16 03:47 11/15/16 03:47 Assessment and Plan (1) Delirium Status: Acute Assessment and plan: Currently patient is intubated. Current Visit: Yes (2) Seizure Status: Acute Assessment and plan: Continue Keppra for now Current Visit: Yes (3) Acute encephalopathy Status: Acute Assessment and plan: This is likely infectious in etiology Continue current antibiotic coverage. Current Visit: Yes
[2016-11-15] MEDS: INSULIN REGULAR 100 UNIT/ML SUBCUT SCH ×2 (18:06→23:15)
[2016-11-15] MEDS: traZODone 50 MG TABLET PO SCH (20:37)
[2016-11-16] MEDS: AMPICILLIN INJ 2,000 MG in SODIUM CHLORIDE 0.9% 100 ML IV SCH ×3 (00:35→08:29)
[2016-11-16] MEDS: MORPHINE IR 15 MG TABLET NG SCH ×2 (00:36→08:30)
[2016-11-16] MEDS: PROPOFOL 1,000 MG/100 ML BOTTLE IV SCH ×3 (01:51→19:00)
[2016-11-16] MEDS: ACYCLOVIR INJ 1,000 MG in SODIUM CHLORIDE 0.9% 250 ML IV SCH ×2 (02:11→12:13)
[2016-11-16] MEDS: cefTRIAXone 2,000 MG in SODIUM CHLORIDE 0.9% 100 ML IV SCH ×2 (03:18→16:45)
[2016-11-16] MEDS: VANCOMYCIN INJ 1,750 MG in SODIUM CHLORIDE 0.9% 500 ML IV SCH ×3 (04:21→20:57)
[2016-11-16 04:43] LABS: Magnesium 1.7 MG/DL (1.8-2.4); Phosphorous 3.2 MG/DL (2.5-4.9); Prealbumin 8.8 MG/DL (20-40)
[2016-11-16] MEDS ORDERED: MAGNESIUM SULF RIDER 2 GM in PREMIX 1 EACH IV ONE (05:29)
[2016-11-16] MEDS: INSULIN REGULAR 100 UNIT/ML SUBCUT SCH ×3 (06:08→18:06)
--- NOTE | 2016-11-16 06:13 | Pain Management Progress Note ---
Assessment and Plan (1) Chronic pain Status: Acute Assessment and plan: will reduce pain medications a little , not related to seizures though 11/16 continue current pain medications Current Visit: Yes (2) Seizure Status: Acute Assessment and plan: consult neurology 11/15. we will consult Dr. pretty for wound care. try to wean off the ventilator. continue current medications. 11/16 plan wean off the vent today Current Visit: Yes (3) SVT (supraventricular tachycardia) Status: Resolved Assessment and plan: consult cardiology Current Visit: Yes Pain - Subjective Interval history: stable overnight, follows commands, hopefully start weaning off the ventilator today Exam - Constitutional Vitals: Period Temp Pulse Resp BP Sys/Hahn Pulse Ox Last 24 Hr 97.3 F-99.3 F 85-124 12-26 109-170/67-109 96-100 General appearance: over weight - Head Head exam: Present: normal inspection - Eye Eye exam: Present: EOMI Pupils: Present: LILY - ENT ENT exam: Present: normal exam Ear exam: Present: other Mouth exam: Present: normal external inspection - Neck Neck exam: Present: normal inspection - Respiratory Respiratory exam: Present: decreased breath sounds - Cardiovascular Cardiovascular exam: Present: RRR - GI/Abdominal GI/Abdominal exam: Present: normal bowel sounds - Back Exam Back exam: Present: vertebral tenderness - Neurological Exam Neurological exam: Present: altered - Skin Skin exam: Present: normal color Results - Labs CBC & BMP: 11/15/16 03:47 11/15/16 03:47 Lab Results: I have reviewed the past 24 hour labs
[2016-11-16] MEDS: DEXTROSE 5% NACL 0.45% 1,000 ML IV SCH (06:24)
[2016-11-16] MEDS: LISINOPRIL 10 MG TABLET PO SCH ×2 (08:28→20:56)
[2016-11-16] MEDS: NICOTINE 21 MG/24 HR PATCH TRANSDERM SCH (08:28)
[2016-11-16] MEDS: METOPROLOL TARTRATE 50 MG TABLET PO SCH ×2 (08:28→20:57)
[2016-11-16] MEDS: PANTOPRAZOLE 40 MG TABLET PO SCH (08:28)
--- NOTE | 2016-11-16 08:54 | Pulmonology Progress Note ---
Pulmonary - PN: Subj Interval history: The patient is a 41-year-old white man came in with a low-grade fever and headaches and had seizures. The has a pain pump in his back and it looks like he probably has meningitis now. He was taken to surgery and had the pain pump removed. He has been on the ventilator since his surgery. Yesterday he had a fairly good day and he is comfortable on the ventilator. His temp is 99 and is having some sweats however. He is still sedated at present his vital signs otherwise have been stable and his O2 saturation is 100%. His cultures are still negative so far. Overall he is stable and will see how he does on CPAP Exam (Progress Note) - Constitutional Vitals: Period Temp Pulse Resp BP Sys/Hahn Pulse Ox Last 24 Hr 97.3 F-99.3 F 85-119 12 109-170/67-109 96-100 Exam: General appearance: over weight, other (the patient is sedated and comfortable on the ventilator at present.) - Head Head exam: Present: normal inspection - Eye Eye exam: Absent: scleral icterus - ENT ENT exam: Present: normal exam, ET tube is in good position - Neck Neck exam: Present: normal inspection. Absent: lymphadenopathy, meningismus, thyromegaly - Respiratory Respiratory exam: Present: clear to auscultation bilaterally. He does have good breath sounds bilaterally. Absent: wheezes - Cardiovascular Cardiovascular exam: Present: regular rate and rhythm. Absent: gallop, systolic murmur - GI/Abdominal GI/Abdominal exam: Present: normal bowel sounds, soft. His left flank is bandaged with drains present. Absent: organomegaly, tenderness - Extremities Exam Extremities exam: Absent: calf tenderness, edema - Neurological Exam Neurological exam: Present: other (he is now sedated on the ventilator. He does get agitated when off sedation) - Skin Skin exam: Present: warm, dry Results - Labs CBC & BMP: 11/15/16 03:47 11/15/16 03:47 Assessment and Plan (1) SVT (supraventricular tachycardia) Status: Resolved Assessment and plan: The patient had a better heart rate now that he is sedated on the ventilator. Current Visit: No (2) Seizure Status: Acute Assessment and plan: He has not had any further seizures. Current Visit: Yes (3) Fever Status: Acute Assessment and plan: He does look like he has meningitis on his lumbar puncture. He is getting broad -spectrum antibiotics. His cultures are still negative so far. Current Visit: Yes (4) Opioid dependence Status: Acute Assessment and plan: His pain pump was removed yesterday. He is getting morphine orally. Current Visit: Yes (5) Aspiration into airway Status: Acute Assessment and plan: He may have had some mild aspiration but at this point his breathing is relatively stable. His chest x-ray does not show any definite infiltrates. He has not shown any signs of pneumonia yet. Current Visit: Yes (6) Meningitis Status: Acute Assessment and plan: The patient did have an abnormal LP and is being covered for meningitis. There is no growth so far. Current Visit: Yes (7) On mechanically assisted ventilation Status: Acute Assessment and plan: The patient looks quite comfortable on the ventilator and will adjust his ventilator. He appears stable and we will try him on CPAP today. Current Visit: Yes
[2016-11-16] MEDS ORDERED: SKIN HEALING OINT (AQUAPHOR) 50 GM TUBE TOP SCH (09:00)
--- NOTE | 2016-11-16 09:13 | Hospitalist Progress Note ---
Assessment and Plan (1) Meningitis Status: Acute Assessment and plan: 1)meningitis associated with pain pump- CSF shows meningitis, cultures, gm stain , antigens all negative. Pump was removed and all those cultures were negative except for cath tip which has GNR on gram stain. Continue current level of antibiotic treatment until bacterial cultures negative and if there is no new growth, stop vanc and amp and continue ceftriaxone and acyclovir (HSV pending). No more seizures, and he is calm and cooperative when the sedation is lightened - a real improvement. Diaphoresis this am could be from breaking fever if the peak temp was not measured or withdrawal- he is on morphine but not on his usual doses. Resume usual pain meds when extubated. 2)brisk UOP- normalized. 3)marcotic tolerance/dependence due to chronic pain syndrome- resume meds as above, but continue to hold fentanyl for now. 4)nutrition- tolerating tube feeds. change IVF to 1/2 NS from D5half. Current Visit: Yes (2) Sepsis Status: Acute Current Visit: Yes (3) Seizure Status: Acute Current Visit: Yes (4) Opioid dependence Status: Acute Current Visit: Yes (5) Aspiration into airway Status: Acute Current Visit: Yes (6) On mechanically assisted ventilation Status: Acute Current Visit: Yes Hospitalist: Subjective Interval history: Mr Staley remained comfortable and stable on vent overnight. He is sedated but when the Diprivan is lightened he follows commands. No fever. Tolerating tube feeds. Exam - Constitutional Vitals: Period Temp Pulse Resp BP Sys/Hahn Pulse Ox Last 24 Hr 97.3 F-99.3 F 85-119 12-26 109-170/67-109 96-100 General appearance: no acute distress, over weight - Head Head exam: Present: normocephalic, atraumatic - Eye Eye exam: Present: EOMI. Absent: scleral icterus - Respiratory Respiratory exam: Present: clear to auscultation bilaterally - Cardiovascular Cardiovascular exam: Present: regular rate and rhythm - GI/Abdominal GI/Abdominal exam: Present: normal bowel sounds, soft. Absent: tenderness - Extremities Exam Extremities exam: Absent: edema - Neurological Exam Neurological exam: Present: other (sedated) - Skin Skin exam: Present: warm, diaphoretic (this morning he was diaphoretic, temp 99) Results - Labs CBC & BMP: 11/15/16 03:47 11/15/16 03:47 Lab Results: I have reviewed the past 24 hour labs
--- NOTE | 2016-11-16 09:30 | XRay Report ---
XR chest 1V portable Indication: Extubation Comparison: 15 November 2016 Findings: The heart and mediastinum are stable in size and configuration. Endotracheal tube has been removed. NG tube is unchanged in position. The pulmonary vascularity is normal in caliber. There is slight increased right lower lung density. No other lung infiltrates, effusions, pneumothorax or other abnormality is demonstrated. Impression: Interval extubation with slight increased right lower lung density, may indicate atelectasis. PROCEDURE INTERPRETED AT [facility] DEPARTMENT OF RADIOLOGY Final Report Signed by: Dr. Patrick Marin
--- NOTE | 2016-11-16 12:11 | Pathology Report from [facility] ---
ACCESSION # : [id number] PATIENT NAME : Dane Staley ORDERING DR : Anjum Chavez MD CLINICAL HX: Aletered Mental Status with Meningitis. POST-OP DX: Same SPECIMEN INFO: Fluid,CSF - 20 ml's hazy CLASS: II CLASS COMMENTS: Acute and chronic inflammation. CLASS LEGEND: CLASS 0 Material inadequate for diagnosis because of (see comment) CLASS I Absence of atypical or abnormal cells CLASS II Atypical Cytology but no evidence of malignancy CLASS III Cytology suggestive of but not conclusive for malignancy CLASS IV Cytology strongly suggestive of malignancy CLASS V Cytology conclusive for malignancy SERVICE DATE: 11/15/2016 REPORT DATE: 11/16/2016 PATHOLOGIST: Pavan Verma [facility].D. [facility]
[2016-11-16] MEDS: SODIUM CHLORIDE 0.45% 1,000 ML IV SCH ×3 (12:13→23:16)
--- NOTE | 2016-11-16 12:16 | Pathology Report from [facility] ---
ACCESSION # : [id number] PATIENT NAME : Xavier Morales ORDERING DR : MARY JENKINS MD CLINICAL HX: Menigitis POST-OP DX: Same SPECIMEN INFO: Pain Pump GROSS DESCRIPTION: The specimen is received in formalin labeled with the patient 's name Xavier Morales and "PAIN PUMP" consists of a pain pump with wires. Submitted for gross exam only. DIAGNOSIS FOR XAVIER MORALES: Pain infusion pump, GROSS ONLY. SERVICE DATE: 11/15/2016 REPORT DATE: 11/16/2016 PATHOLOGIST: Linda Greene M.D. [facility]
[2016-11-16] MEDS ORDERED: MORPHINE 2 MG/1 ML SYRINGE IV PRN (13:24)
[2016-11-16] MEDS: amLODIPine 5 MG TABLET PO SCH ×2 (14:16→20:54)
[2016-11-16] MEDS: SKIN HEALING OINT (AQUAPHOR) 50 GM TUBE TOP SCH (14:16)
--- NOTE | 2016-11-16 16:43 | Neurology Progress Note ---
Neurology - PN : Subjective Interval history: Patient seems to be doing much better. He is extubated. He is alert and awake. Following commands. Moving all 4 extremities. Antibiotics has been adjusted and I agree with them. He is on Rocephin and then Comycin. Herpes PCR is negative. Exam (Progress Note) - Constitutional Vitals: Period Temp Pulse Resp BP Sys/Hahn Pulse Ox Last 24 Hr 98.3 F-99.3 F 98-119 12-26 110-183/67-114 95-100 Exam: GENERAL: Patient is in no acute distress. NECK: Neck is supple. There is no JVD. No carotid bruits present. No thyroid masses. CVS: First and second heart sounds are normal. There is no S3 present. Regular rate and rhythm. RESPIRATORY: Lungs are clear to auscultation without any rales or rhonchi. ABDOMEN: Soft and non-tender. Bowel sounds are present. There is no hepatosplenomegaly. EXT: There is no palpable edema. Peripheral pulses are present. Skin: No rashes Central Nervous system: General: Alert, awake and Oriented Speech: Fluent Comprehension: Intact and normal Facial expressions: Normal Cranial Nerves: CN1/Olfactory: Normal CN II/ Optic: Normal, Visual Johnson unreliable CN III, and : LILY & EOMI CN V: Normal & intact CN VII: face is symmetric CNVIII: Normal CN XI/X/XI/XII: Intact and Normal Motor: Bulk and Tone is normal. Strength in the right 5/5 Strength in the left 5/5 Sensory: Grossly intact for all the modalities of PP, LT and temp sense Reflexes: 1+ and symmetrical Cerebellar function: Normal finger to nose and heel to hargrove testing. Gait: Not tested Results - Labs CBC & BMP: 11/15/16 03:47 11/15/16 03:47 Assessment and Plan (1) Delirium Status: Acute Assessment and plan: Doing much better. Current Visit: Yes (2) Seizure Status: Acute Assessment and plan: Continue Keppra for now Current Visit: Yes (3) Acute encephalopathy Status: Acute Assessment and plan: This was likely infectious in etiology Continue current antibiotic coverage. Patient seems to be doing much better. Current Visit: Yes (4) Meningitis Status: Acute Assessment and plan: Continue current IV antibiotic coverage. Hopefully by Monday we will switch him over to by mouth medications. Current Visit: Yes
[2016-11-16] MEDS: hydrALAZINE 20 MG/1 ML VIAL IV PRN ×2 (17:44→23:17)
[2016-11-16] MEDS: MORPHINE IR 15 MG TABLET PO SCH (20:54)
[2016-11-16] MEDS: MORPHINE ER 100 MG TABLET PO SCH (20:56)
[2016-11-16] MEDS: traZODone 50 MG TABLET PO SCH (20:56)
[2016-11-17] MEDS: INSULIN REGULAR 100 UNIT/ML SUBCUT SCH ×2 (00:10→06:44)
[2016-11-17] MEDS: VANCOMYCIN INJ 1,750 MG in SODIUM CHLORIDE 0.9% 500 ML IV SCH (04:48)
[2016-11-17 05:24] LABS: Hematocrit 38.4 VOL% (42.0-52.0); Hemoglobin 12.7 GM/DL (14.0-18.0); Red Blood Count 4.97 MC/CUMM (3.8-5.5); White Blood Count 7.4 T/CUMM (4-12)
[2016-11-17 05:25] LABS: Basophils % 0.3 % (0.0-0.8); Eosinophils # 0.1 10*3/uL (0.0-0.87); Eosinophils % 1.5 % (0.00-10.9); Immature Granulocytes % 0.5 %; Immature Granulocytes Absolute 0.04 #; Lymphocytes # 1.6 10*3/uL (1.4-4.0); Lymphocytes % 21.5 % (21.2-54.2); Mean Corpuscular HGB Conc 33.1 GM/DL (32-36); Mean Corpuscular Hemoglobin 26 PG (27-34); Mean Corpuscular Volume 77.3 FL (87-102); Monocytes # 0.7 10*3/uL (0.11-0.8); Monocytes % 9.7 % (1.7-12.7); Neutrophils # 4.9 10*3/uL (1.4-7.4); Neutrophils % 66.5 % (38.7-73.9); Platelet Count 237 T/CUMM (130-400); Red Cell Distribution Width 13.7 % (9.3-17.3)
[2016-11-17] MEDS: cefTRIAXone 2,000 MG in SODIUM CHLORIDE 0.9% 100 ML IV SCH ×3 (05:36→18:00)
[2016-11-17 05:53] LABS: Calcium 8.5 MG/DL (8.5-10.1); Osmolality,Calculated 272.5 MOS/KG (273-304); Potassium 3.2 MMOL/L (3.5-5.1)
--- NOTE | 2016-11-17 05:55 | Pain Management Progress Note ---
Assessment and Plan (1) Chronic pain Status: Acute Assessment and plan: will reduce pain medications a little , not related to seizures though 11/16 continue current pain medications 11/17 continue current medications for pain at this time as the patient's increases his activity and the pain increases I may increase his pain medications Current Visit: Yes (2) Seizure Status: Acute Assessment and plan: consult neurology 11/15. we will consult Dr. pretty for wound care. try to wean off the ventilator. continue current medications. 11/16 plan wean off the vent today 11/17 he is doing well I believe he can go to the floor today as far as I'm concerned. His antibiotics may need to be adjusted based on his microbiology results Current Visit: Yes (3) SVT (supraventricular tachycardia) Status: Resolved Assessment and plan: consult cardiology Current Visit: No Pain - Subjective Interval history: The patient is awake and alert. There is no signs of narcotic withdrawal pain seems to be well controlled. Patient understands what happened and is satisfied with his care. The microbiology results showed the catheter tip had Enterobacter cloacae however the specimen was not collected in a sterile container so I suspect that could be possibly contamination all the wound cultures have been negative defer to primary regarding antibiotic adjustment Exam - Constitutional Vitals: Period Temp Pulse Resp BP Sys/Hahn Pulse Ox Last 24 Hr 98.3 F-99.6 F 96-118 14-34 116-188/77-116 95-100 General appearance: no acute distress - Head Head exam: Present: normal inspection - Eye Eye exam: Present: EOMI Pupils: Present: LILY - ENT ENT exam: Present: normal exam Ear exam: Present: intact Mouth exam: Present: normal external inspection - Neck Neck exam: Present: normal inspection - Respiratory Respiratory exam: Present: clear to auscultation bilaterally - Cardiovascular Cardiovascular exam: Present: RRR - GI/Abdominal GI/Abdominal exam: Present: normal bowel sounds - Extremities Exam Extremities exam: Present: normal inspection - Back Exam Back exam: Present: vertebral tenderness - Neurological Exam Neurological exam: Present: alert, oriented X3 - Skin Skin exam: Present: normal color Results - Labs CBC & BMP: 11/17/16 04:17 11/15/16 03:47 Lab Results: I have reviewed the past 24 hour labs
--- NOTE | 2016-11-17 06:28 | XRay Report ---
Exam: XR chest 1V portable Date: 11/17/2016 4:00 AM Indication: Follow-up Comparison: 11/16/2016 Technical: AP portable Findings: Cardiomegaly is present mid inspiratory chest. External cardiac leads are present. Patchy alveolar densities are present in the lung tee. No obvious consolidations. These times otherwise intact Impression: 1. Cardiomegaly without overt decompensation. 2. Patchy alveolar density in the right infrahilar region. PROCEDURE INTERPRETED AT [facility] DEPARTMENT OF RADIOLOGY Final Report Signed by: Dr. Grover Rendon
--- NOTE | 2016-11-17 07:12 | Pulmonology Progress Note ---
Pulmonary - PN: Subj Interval history: This 41-year-old white male came in with a headache decreased level of consciousness. He was found to have meningitis. Spinal fluid showed 987 white cells with 79% neutrophils. This is most consistent with a bacterial cause. He grew out Enterobacter from the catheter from his pain pump. I think this is likely the etiologic agent. Rocephin covers this and he is on 2 g a day of Rocephin. He was ventilated earlier. His mental status has improved. Stable from a pulmonary standpoint. Exam (Progress Note) - Constitutional Vitals: Period Temp Pulse Resp BP Sys/Hahn Pulse Ox Last 24 Hr 98.3 F-99.6 F 93-118 17-34 116-188/77-116 95-100 Exam: Alert afebrile. Vital signs normal. Pupils react to light. Throat is clear. Neck supple no bruits. Chest clear equal breath sounds. Heart normal rate and rhythm no murmurs. Abdomen soft no masses. Extremities no clubbing cyanosis edema. Calves nontender. Results - Labs CBC & BMP: 11/17/16 04:17 11/17/16 04:17 Lab Results: I have reviewed the past 24 hour labs - Diagnostic Findings Procedure: Chest x-ray: image reviewed by me (Mild atelectasis. No acute infiltrates.) Assessment and Plan (1) Seizure Status: Acute Assessment and plan: No further seizures. Likely caused by meningitis. Defer to neurology. Current Visit: Yes (2) Acute encephalopathy Status: Acute Assessment and plan: Mental status is improved. Seems to be alert and oriented. Current Visit: Yes (3) Meningitis Status: Acute Assessment and plan: Head she has had findings consistent with meningitis. Antigen and antibody screen negative. However he did grow Enterobacter from the pain pump catheter tip. I think this is likely the cause. He is on Rocephin which covers that. Current Visit: Yes (4) On mechanically assisted ventilation Status: Resolved Assessment and plan: He has been weaned from the ventilator and seems to be stable on room air. Current Visit: Yes
--- NOTE | 2016-11-17 07:43 | General Surgery Progress Note ---
Assessment and Plan (1) Abnormal surgical wound Status: Acute Assessment and plan: Impression: 1. Left flank surgical wound from removal of a pain pump 2. Back wound secondary to removal of pain pump and leads Plan: Wound care 11/17/2016 Wounds doing well without infection. Drainage is decreasing and will be able to pull tomorrow. Current Visit: Yes Subjective Patient reports: Present: no new complaints, tolerating liquids well, afebrile Exam - Constitutional Vitals: Period Temp Pulse Resp BP Sys/Hahn Pulse Ox Last 24 Hr 98.3 F-99.6 F 93-118 17-34 116-188/77-116 95-100 General appearance: mild distress - Head Head exam: Present: normal inspection - Neck Neck exam: Present: normal inspection - Respiratory Respiratory exam: Present: rales - Cardiovascular Cardiovascular exam: Present: RRR - GI/Abdominal GI/Abdominal exam: Present: hypoactive bowel sounds, soft - Extremities Exam Extremities exam: Present: normal inspection - Back Exam Back exam: Present: other (Wounds are clean and dry without infection. Drainage is minable.) - Neurological Exam Neurological exam: Present: alert, altered - Skin Skin exam: Present: normal color, warm, dry Results - Labs CBC & BMP: 11/17/16 04:17 11/17/16 04:17 Lab Results: I have reviewed the past 24 hour labs
[2016-11-17] MEDS: SODIUM CHLORIDE 0.45% 1,000 ML IV SCH ×3 (08:00→18:01)
[2016-11-17] MEDS: MORPHINE IR 15 MG TABLET PO SCH ×2 (08:48→21:12)
[2016-11-17] MEDS: VENLAFAXINE XR 75 MG CAPSULE PO SCH (08:48)
[2016-11-17] MEDS: METOPROLOL TARTRATE 50 MG TABLET PO SCH ×2 (08:48→21:13)
[2016-11-17] MEDS: SKIN HEALING OINT (AQUAPHOR) 50 GM TUBE TOP SCH (08:48)
[2016-11-17] MEDS: NICOTINE 21 MG/24 HR PATCH TRANSDERM SCH (08:49)
[2016-11-17] MEDS: amLODIPine 5 MG TABLET PO SCH ×2 (08:49→21:14)
[2016-11-17] MEDS: MORPHINE ER 100 MG TABLET PO SCH ×2 (08:49→21:13)
[2016-11-17] MEDS: PANTOPRAZOLE 40 MG TABLET PO SCH (08:49)
[2016-11-17] MEDS: LISINOPRIL 10 MG TABLET PO SCH ×2 (08:49→21:13)
[2016-11-17] MEDS ORDERED: fentaNYL 100 MCG/HR PATCH TRANSDERM SCH (09:00)
--- NOTE | 2016-11-17 09:57 | Hospitalist Progress Note ---
Assessment and Plan (1) Meningitis Status: Acute Assessment and plan: 1)meningitis associated with pain pump- CSF culture growing GNR. Pump tip with enterobacter. Continue Ceftiaxone but will stop vanc. amp and acyclovir stopped yesterday. Move to the floor, PT and OT. 2)narcotic tolerance/dependence- no sign of withdrawal 3)nutrition- regular diet 4)HTN- on norvasc BID, and metoprolol BID. controlled most of the time- continue hydralazine prn. Current Visit: Yes (2) Sepsis Status: Acute Current Visit: Yes (3) Seizure Status: Acute Current Visit: Yes (4) Opioid dependence Status: Acute Current Visit: Yes (5) Aspiration into airway Status: Acute Current Visit: Yes (6) On mechanically assisted ventilation Status: Resolved Current Visit: Yes Hospitalist: Subjective Interval history: Mr Staley is doing well. He is alert and oriented and denies headache. He is eating but has not been out of bed. He says his chronic pain is well controlled. Exam - Constitutional Vitals: Period Temp Pulse Resp BP Sys/Hahn Pulse Ox Last 24 Hr 98.3 F-99.6 F 93-118 15-34 116-188/77-116 95-100 General appearance: no acute distress, over weight - Head Head exam: Present: normocephalic, atraumatic - Eye Eye exam: Present: EOMI. Absent: scleral icterus - Respiratory Respiratory exam: Present: clear to auscultation bilaterally - Cardiovascular Cardiovascular exam: Present: regular rate and rhythm - GI/Abdominal GI/Abdominal exam: Present: normal bowel sounds, soft. Absent: tenderness - Extremities Exam Extremities exam: Absent: edema - Neurological Exam Neurological exam: Present: alert, oriented X3, CN II-XII intact. Absent: motor sensory deficit - Skin Skin exam: Present: warm, dry Results - Labs CBC & BMP: 11/17/16 04:17 11/17/16 04:17 Lab Results: I have reviewed the past 24 hour labs
[2016-11-17] MEDS: AMPICILLIN INJ 2,000 MG in SODIUM CHLORIDE 0.9% 100 ML IV SCH (12:24)
[2016-11-17] MEDS: traZODone 50 MG TABLET PO SCH (21:13)
[2016-11-18] MEDS: SODIUM CHLORIDE 0.45% 1,000 ML IV SCH ×2 (01:29→09:56)
[2016-11-18 05:05] LABS: Basophils % 0.3 % (0.0-0.8); Eosinophils # 0.2 10*3/uL (0.0-0.87); Eosinophils % 2.9 % (0.00-10.9); Hematocrit 36.6 VOL% (42.0-52.0); Hemoglobin 11.9 GM/DL (14.0-18.0); Immature Granulocytes % 0.4 %; Immature Granulocytes Absolute 0.03 #; Lymphocytes # 1.6 10*3/uL (1.4-4.0); Lymphocytes % 21.7 % (21.2-54.2); Mean Corpuscular HGB Conc 32.5 GM/DL (32-36); Mean Corpuscular Hemoglobin 25 PG (27-34); Mean Corpuscular Volume 77.7 FL (87-102); Mean Platelet Volume 8.9 FL (9.6-12.0); Monocytes # 0.7 10*3/uL (0.11-0.8); Monocytes % 9.8 % (1.7-12.7); Neutrophils # 4.7 10*3/uL (1.4-7.4); Neutrophils % 64.9 % (38.7-73.9); Platelet Count 215 T/CUMM (130-400); Red Blood Count 4.71 MC/CUMM (3.8-5.5); Red Cell Distribution Width 13.2 % (9.3-17.3); White Blood Count 7.2 T/CUMM (4-12)
[2016-11-18 05:47] LABS: Calcium 8.2 MG/DL (8.5-10.1); Osmolality,Calculated 273.5 MOS/KG (273-304); Potassium 3.1 MMOL/L (3.5-5.1)
--- NOTE | 2016-11-18 06:22 | Pain Management Progress Note ---
Assessment and Plan (1) Chronic pain Status: Acute Assessment and plan: will reduce pain medications a little , not related to seizures though 11/16 continue current pain medications 11/17 continue current medications for pain at this time as the patient's increases his activity and the pain increases I may increase his pain medications 11/18 ok to go to morphine tid Current Visit: Yes (2) Seizure Status: Acute Assessment and plan: consult neurology 11/15. we will consult Dr. pretty for wound care. try to wean off the ventilator. continue current medications. 11/16 plan wean off the vent today 11/17 he is doing well I believe he can go to the floor today as far as I'm concerned. His antibiotics may need to be adjusted based on his microbiology results 11/18 if he can be converted to oral antibiotics, possibly go home soon Current Visit: Yes (3) SVT (supraventricular tachycardia) Status: Resolved Assessment and plan: consult cardiology Current Visit: No Pain - Subjective Interval history: he is doing well. he wants to go home today. he wants to increase morphine dose back to tid. all questions and concerns were discussed in detail Exam - Constitutional Vitals: Period Temp Pulse Resp BP Sys/Hahn Pulse Ox Last 24 Hr 98.7 F-99 F 80-106 15-28 112-158/69-100 96-100 General appearance: no acute distress, no normal weight - Head Head exam: Present: normal inspection - Eye Eye exam: Present: EOMI Pupils: Present: LILY - ENT ENT exam: Present: normal exam Ear exam: Present: intact Mouth exam: Present: normal external inspection - Neck Neck exam: Present: normal inspection - Respiratory Respiratory exam: Present: clear to auscultation bilaterally - Cardiovascular Cardiovascular exam: Present: RRR - GI/Abdominal GI/Abdominal exam: Present: other (incsion clean) - Extremities Exam Extremities exam: Present: normal inspection - Back Exam Back exam: Present: vertebral tenderness - Neurological Exam Neurological exam: Present: alert, oriented X3 - Skin Skin exam: Present: normal color Results - Labs CBC & BMP: 11/18/16 04:41 11/18/16 04:41 Lab Results: I have reviewed the past 24 hour labs
--- NOTE | 2016-11-18 08:11 | Pulmonology Progress Note ---
Pulmonary - PN: Subj Interval history: This 41-year-old white male came in with a headache decreased level of consciousness. He was found to have meningitis. Spinal fluid showed 987 white cells with 79% neutrophils. This is most consistent with a bacterial cause. He grew out Enterobacter from the catheter from his pain pump. I think this is likely the etiologic agent. Rocephin covers this and he is on 2 g a day of Rocephin. He was ventilated earlier. His mental status has improved. Stable from a pulmonary standpoint. 11/18/2016 patient doing well from pulmonary standpoint. Room air oxygen saturation in upper 90s. I will sign off. Please call if needed further. Exam (Progress Note) - Constitutional Vitals: Period Temp Pulse Resp BP Sys/Hahn Pulse Ox Last 24 Hr 98.7 F-99 F 80-106 18-28 112-154/69-100 96-100 Exam: Alert afebrile. Vital signs normal. Pupils react to light. Throat is clear. Neck supple no bruits. Chest clear equal breath sounds. Heart normal rate and rhythm no murmurs. Abdomen soft no masses. Extremities no clubbing cyanosis edema. Calves nontender. Results - Labs CBC & BMP: 11/18/16 04:41 11/18/16 04:41 Lab Results: I have reviewed the past 24 hour labs Assessment and Plan (1) Seizure Status: Acute Assessment and plan: No further seizures. Likely caused by meningitis. Defer to neurology. 11/18/2016 on seizure medications. Neurology following. Current Visit: Yes (2) Acute encephalopathy Status: Acute Assessment and plan: Mental status is improved. Seems to be alert and oriented. 11/18/2016 patient is alert and oriented. Encephalopathy felt to be due to meningitis. Current Visit: Yes (3) Meningitis Status: Acute Assessment and plan: Head she has had findings consistent with meningitis. Antigen and antibody screen negative. However he did grow Enterobacter from the pain pump catheter tip. I think this is likely the cause. He is on Rocephin which covers that. 11/18/2016 deferred to primary service as far as how long to treat. Will sign off from pulmonary standpoint. Current Visit: Yes (4) On mechanically assisted ventilation Status: Resolved Assessment and plan: He has been weaned from the ventilator and seems to be stable on room air. 11/18/2016 patient having no respiratory problems on room air, and lungs are clear. Current Visit: Yes
[2016-11-18] MEDS: cefTRIAXone 2,000 MG in SODIUM CHLORIDE 0.9% 100 ML IV SCH (08:55)
[2016-11-18] MEDS: NICOTINE 21 MG/24 HR PATCH TRANSDERM SCH (08:57)
[2016-11-18] MEDS ORDERED: POTASSIUM CHLORIDE 20 MEQ TABLET PO SCH (09:00)
[2016-11-18] MEDS: SKIN HEALING OINT (AQUAPHOR) 50 GM TUBE TOP SCH (09:02)
[2016-11-18] MEDS: METOPROLOL TARTRATE 50 MG TABLET PO SCH (09:03)
[2016-11-18] MEDS: VENLAFAXINE XR 75 MG CAPSULE PO SCH (09:03)
[2016-11-18] MEDS: MORPHINE IR 15 MG TABLET PO SCH (09:04)
[2016-11-18] MEDS: amLODIPine 5 MG TABLET PO SCH (09:05)
[2016-11-18] MEDS: LISINOPRIL 10 MG TABLET PO SCH (09:06)
[2016-11-18] MEDS: PANTOPRAZOLE 40 MG TABLET PO SCH (09:06)
[2016-11-18] MEDS: MORPHINE ER 100 MG TABLET PO SCH (09:54)
--- NOTE | 2016-11-18 10:23 | General Surgery Progress Note ---
Assessment and Plan - Time spent with patient Time spent with patient: Less than 30 minutes (1) Abnormal surgical wound Status: Acute Assessment and plan: Impression: 1. Left flank surgical wound from removal of a pain pump 2. Back wound secondary to removal of pain pump and leads Plan: Wound care 11/17/2016 Wounds doing well without infection. Drainage is decreasing and will be able to pull tomorrow. 11/18/2016 Following the wounds of the left flank and back from the removal of the pain pump. The drainage in the RIVERA drain is down to 10-15 cc a day but knowing that this is a small cavity that is may still be a significant amount. With the wound looking clean and dry while leave the drain in a few more days especially if he cannot be her through the weekend. May get the drain out on Monday if everything stable. Current Visit: Yes Subjective Patient reports: Present: no new complaints, afebrile Exam - Constitutional Vitals: Period Temp Pulse Resp BP Sys/Hahn Pulse Ox Last 24 Hr 98.7 F-99 F 80-103 18-28 114-154/69-81 96-100 General appearance: mild distress - Respiratory Respiratory exam: Present: rales - Cardiovascular Cardiovascular exam: Present: RRR - GI/Abdominal GI/Abdominal exam: Present: hypoactive bowel sounds, soft, other (Drainage is minimal but still enough to keep the drain through the weekend) - Extremities Exam Extremities exam: Present: normal inspection - Back Exam Back exam: Present: normal inspection (Wound clean and dry) - Neurological Exam Neurological exam: Present: alert, oriented X3, CN II-XII intact - Skin Skin exam: Present: normal color, warm, dry Results - Labs CBC & BMP: 11/18/16 04:41 11/18/16 04:41 Lab Results: I have reviewed the past 24 hour labs Specialty Discharge - Follow Up or Referrals Follow up with: Anjum Chavez MD [Physician] - 1 Week
--- NOTE | 2016-11-18 11:49 | Discharge Summary ---
Hospital Course - Hospital Course Hospital Course: Mr Staley came to the hospital after seizure. He developed fever also. He had LP which was purulent and had indices consistent with meningitis. 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 He has done very well- no siezures for 3 days and he is neurologically back to his normal self. Initially in addition to seizures he was disoriented, encephalopathic, combative and restless to the point that he required intubation so that he could be treated. He improved very quickly. He had a pain pump placed about a month ago for epidural pain meds. Dr Cummings his pain doctor promptly removed the device when he was diagnosed with meningitis which led to us having cultures as above. He will resume his usual pain treatment. He asks to be discharged today, volunteering that his is an RN and can give him IV antibiotics at home. I have discussed this with Dr Chavez who agrees and wants to see him in clinic in a week or so. He will have another 7 days of IV Ceftriaxone followed by oral Ceftin 500 BID for 7 more days. - Time spent with patient Time with patient DS: Greater than 30 minutes (discharge planning, medicine reconciliation, documentation, care coordination) Diagnosis - Discharge Diagnosis (1) Meningitis Status: Acute (2) Sepsis Status: Resolved (3) Seizure Status: Resolved (4) Opioid dependence Status: Chronic (5) Aspiration into airway Status: Resolved (6) On mechanically assisted ventilation Status: Resolved Specialty Discharge - Follow Up or Referrals Follow up with: Anjum Chavez MD [Physician] - 11/24/16 11:45 am Discharge Plan - Discharge Data Disposition: Home Health Service Condition at Discharge: Stable Discharge Diet: advance to your usual diet Activity: resume usual activities as tolerated - Discharge Medications New Cefuroxime Tab [Ceftin] 500 mg PO BID #14 tablet Metoprolol Tartrate Tab [Lopressor Tab] 50 mg PO BID #60 tablet levETIRAcetam TAB [Keppra Tab] 500 mg PO BID #60 tablet Skin Healing Oint (Aquaphor) [Aquaphor] 1 applic TOP DAILY applic cefTRIAXone [Rocephin] 2,000 mg IV Q12H #14 vial Continue fentaNYL [Fentanyl 100 mcg/hr Patch] 1 patch TRANSDERM Q3DAY Carisoprodol 350 mg PO BEDTIME Lisinopril 10 mg PO DAILY Colchicine [Colcrys] 0.6 mg PO BID Morphine Ir Tab [Morphine IR Tab] 30 mg PO BID Methocarbamol Tab [Robaxin Tab] 750 mg PO TID traZODone [Desyrel] 150 mg PO BEDTIME Venlafaxine HCl [Effexor XR] 150 mg PO DAILY Morphine ER Tab [Ms Contin] 100 mg PO BID - Follow Up or Referral Follow Up: Anjum Chavez MD [Physician] - 11/24/16 11:45 am - Forms/Instructions Exam - Constitutional Vitals: Period Temp Pulse Resp BP Sys/Hahn Pulse Ox Last 24 Hr 98.7 F-99 F 80-103 18-28 114-154/69-81 96-100 General appearance: no acute distress, over weight - Head Head exam: Present: normocephalic, atraumatic - Eye Eye exam: Present: EOMI. Absent: scleral icterus - Respiratory Respiratory exam: Present: clear to auscultation bilaterally - Cardiovascular Cardiovascular exam: Present: regular rate and rhythm - GI/Abdominal GI/Abdominal exam: Present: normal bowel sounds, soft. Absent: tenderness - Extremities Exam Extremities exam: Absent: edema - Neurological Exam Neurological exam: Present: alert, oriented X3, CN II-XII intact. Absent: motor sensory deficit - Skin Skin exam: Present: warm, dry Discharge Results Procedures and tests throughout hospitalization: Pending Orders 11/14/16 Angiotensin Convert Enzyme CSF Stat 11/14/16 14:38 Cytology Request Stat 11/14/16 16:30 AFB Culture/Smears Stat CSF Culture and Gram Stain Stat Fungal Culture w/ Prep Stat Meningitis Ags w/CSF Cult/Smea Stat Viral Culture, Non-Respiratory Stat 11/14/16 17:38 Blood Culture Stat 11/14/16 18:20 Anaerobic Culture Routine 11/19/16 04:00 Basic Metabolic Panel IN AM Comp Blood Count Auto Diff IN AM Labs on day of discharge: Labs from last 24 hours 11/18/16 11/18/16 04:41 04:41 WBC 7.2 RBC 4.71 Hgb 11.9 L Hct 36.6 L MCV 77.7 L MCH 25 L MCHC 32.5 RDW 13.2 Plt Count 215 MPV 8.9 L Neut % (Auto) 64.9 Lymph % (Auto) 21.7 Eaton % (Auto) 9.8 Eos % (Auto) 2.9 Baso % (Auto) 0.3 Neut # (Auto) 4.7 Lymph # (Auto) 1.6 Eaton # (Auto) 0.7 Eos # (Auto) 0.2 Baso # (Auto) 0.0 Immature Gran % 0.4 Nucleated RBC % 0.0 Immature Gran # 0.03 Nucleated RBCs # 0.00 Sodium 139 Potassium 3.1 L Chloride 100 Carbon Dioxide 30 Anion Gap 12.1 BUN 3 L Creatinine 0.50 L GFR Calculation 186 BUN/Creatinine Ratio 6.00 Glucose 90 Calculated Osmolality 273.5 Calcium 8.2 L Preliminary micro results at discharge 11/14/16 17:38 Blood Culture - Preliminary Blood No growth at 3 days 11/14/16 17:38 Blood Culture - Preliminary Blood No growth at 3 days 11/14/16 16:30 CSF Culture - Preliminary Cerebral Spinal Fluid Enterobacter cloacae DS: Provider Date of admission: 11/14/16 01:07 Primary care physician: . No PCP Attending physician on admission: Yoly Shah MD Consults: 11/14/16 02:09 Consult to Dietitian [CONS] Routine Reason for Dietitian: Dietary Consult 11/14/16 07:08 Consult to Physician [CONS] Routine Comment: Consulting Provider: 11/14/16 08:44 Consult to Physician [CONS] Routine Comment: s/p seizure, aspiration Consulting Provider: Cayetano Tsai 11/14/16 15:55 Consult to Pharmacy [CONS] Routine Reason for Pharmacy Consult: Dose/Manage Antibiotics Comment: adjust antibiotics for meningitis 11/14/16 16:03 Consult to Pharmacy [CONS] Routine Reason for Pharmacy Consult: Dose/Manage Vancomycin Dose/Manage Antibiotics 11/14/16 20:29 Consult to Physician [CONS] Routine Comment: vent mgmt Consulting Provider: Consult to Specialist Group: Pulmonology When should Consulting Provider be notified: In am 11/15/16 06:30 Consult to Physician [CONS] Routine Comment: Consulting Provider: Dale Brown When should Consulting Provider be notified: In am Consult to Specialist Group: Surgery When should Consulting Provider be notified: In am 11/15/16 14:01 Consult to Dietitian [CONS] Routine Reason for Dietitian: TF-Initiate/Manage 11/17/16 07:29 Consult to Occupational Therapy [CONS] Routine Reason for Occupational Therapy: Evaluate and Treat PT [Consult to Physical Therapy] [CONS] Routine Reason for Physical Therapy: Evaluate and Treat 11/18/16 09:36 Consult to Case Mgmt/Social Srvs [CONS] Routine Reason for Case Mgmt/Social Srvs: Other Home Health Consult Comment: rocephin 2grams IV twice a day home therapy 7 days Discharging clinician: Yoly Shah MD
[2016-11-18 11:50] VITALS: BP 144/87
== END 2016-11-18 16:15 | disposition home health service (06) | DRG 28 ==
LOC: N.ED 21:23 → N.EDINP 11-14 01:07 → N.5E 11-14 01:29 → N.CC 11-14 08:49 → N.2E 11-17 17:55
PROVIDERS: ADMIT Internal Medicine; ATTEND Internal Medicine